=== PATIENT | male | born 1955 | race Caucasian/White ===

== ENCOUNTER → 2016-11-21 | Outpatient (CLI) | payer MEDICARE ==
--- NOTE | 2016-11-21 18:53 | CONS ---
DATE OF CONSULTATION: 11/21/2016 CONSULTATION/NEW PATIENT EVALUATION HISTORY OF PRESENT ILLNESS/SLEEP-WAKE EVALUATION: A 60-year-old gentleman who has been re-evaluated in the [facility] for obstructive sleep apnea/hypopnea syndrome. Patient had been diagnosed with obstructive sleep apnea in 2012. Since that time he is on treatment with CPAP. For the last about 1-1/2 months, the patient was not able to use his CPAP machine because of problem related to the mask and equipment. SLEEP SCHEDULE: Presently his sleep schedule is from around 9 or 10:00 p.m. until 6 or 7:00 a.m. FALLING ASLEEP: Usually no problem with falling asleep. DURING SLEEP: He usually sleeps on the back position. Even while using his machine he wakes up from sleep up to 4 times with up to 4 episodes of nocturia. DURING THE DAY/WAKE STATE: The patient has problems with memory and concentration. [place] Sleepiness Scale significantly increased to 12. PAST MEDICAL HISTORY: Positive for Lewy body disease, memory problems in the past. MEDICATIONS: Rivastigmine. SOCIAL HISTORY: Positive for smoking in the past; quit in about 1985. Alcohol consumption up to 3 beers per week. REVIEW OF SYSTEMS: Multiple awakenings from sleep, sleepiness during the day. No fevers. No double vision. No recent chest pain. No shortness of breath. No abdominal pain. No bleeding episodes. No blood in urine. No seizure episodes. FAMILY HISTORY: Heart problems, sleep apnea, diabetes, thyroid problems, albino disease, pituitary gland problems by his mother. PHYSICAL EXAMINATION: GENERAL: During physical exam, gentleman without distress. VITAL SIGNS: BP 115/69, HR 55, RR 16. Height 5 feet 6 inches. Weight 203.2. BMI 32.7. Neck 17-1/2 inches in circumference. Temp is 98.4. Oxygen saturation at room air 98%. HEENT: PERRLA, EOMI. Evaluation of oropharynx showed moderately low position of soft palate. Some restriction of nasal breathing. NECK: Supple. No JVD. Thyroid is not palpable. LUNGS: Clear to percussion and to auscultation. Good air exchange. No wheezing or rhonchi. HEART: S1, S2 regular. No murmurs, gallops or rubs. ABDOMEN: Obese. Soft and nontender. Bowel sounds are present. No organomegaly appreciated. EXTREMITIES: No clubbing or cyanosis. SERVICE COUNSELOR: Awake, alert, and oriented x3. Cranial nerves 2 to 7 intact. There is no fasciculation or atrophy noted. No focal deficits observed. IMPRESSION: 1. Obstructive sleep apnea-hypopnea syndrome. Patient continued to have multiple awakenings from sleep while on treatment with CPAP, low position of soft palate. Patient changed his weight about 30 pounds down since the previous CPAP titration. 2. Memory problems. 3. Lewy body disease. 4. Nocturia. 5. Sleepiness. [place] Sleepiness Scale increased to 12. 6. Obesity, body mass index of 32.7. PLAN: 1. Repeat CPAP titration for re-evaluation of effective CPAP pressure at the present time. 2. Continue losing weight. 3. Prescription for all necessary CPAP supplies. 4. No driving if feeling any sleepiness. Thank you very much for referring this patient for consultation. Sincerely, Michele Eldridge MD, PhD, FAASM. Diplomat of [place] [employer], Sleep Medicine Board by [place] [employer] [place] [employer] Premium Auditor of [facility] [place]
== END ==
LOC: SLEEP 14:05
PROVIDERS: ATTEND Internal Medicine
DX: G47.33 Obstructive sleep apnea (adult) (pediatric) (principal); R35.1 Nocturia; E66.9 Obesity, unspecified; G31.83 Neurocognitive disorder with Lewy bodies; F02.80 Dementia in other diseases classified elsewhere, unspecified severity, without behavioral disturbance, psychotic disturbance, mood disturbance, and anxiety; Z68.32 Body mass index [BMI] 32.0-32.9, adult; Z79.899 Other long term (current) drug therapy
CPT/HCPCS: 99211

== ENCOUNTER → 2017-05-08 | Outpatient (CLI) | payer MEDICARE ==
--- NOTE | 2017-05-08 11:35 | PN ---
PROGRESS NOTE DATE OF SERVICE: 05/08/2017 A 61-year-old gentleman who has been followed in the [facility] for treatment of obstructive sleep apnea-hypopnea syndrome. Several months ago patient had CPAP titration and I explained the results of titration to patient and family. Titration went very well, respiration was under very good control with CPAP. Patient received new CPAP unit and he continued to use his CPAP treatment every night without significant problems. He likes his mask. He likes his new machine. There is no snoring with the machine. [place] Sleepiness Scale today is 7. MEDICATIONS: [place], rivastigmine. I checked patient's CPAP unit and I also I reviewed results of reading from the machine. Usage, he is 100% of the time more than 4 hours. Average usage time 7 hours 34 minutes. CPAP pressure is 9 cm of water. Leak 95 percentile is 19 L/minute which is acceptable range, several days patient had more leak. He has nasal mask and sometimes probably during the night when he is moving mask goes slightly off. Apnea-hypopnea index reading from the machine for the last month is 2.5, which is normal respiration. PHYSICAL EXAM: Patient in no distress. BP 121/74, HR 50, RR 16, weight 205, temp 98.0, oxygen saturation at room air 98%. OROPHARYNX: Low position of soft palate. Small oropharyngeal airspace. ABDOMEN: Obese. Neck Supple, no JVD. Thyroid is not palpable. LUNGS Clear to percussion and to auscultation. Good air exchange. No wheezing or rhonchi. HEART S1, S2 regular. No murmurs, gallops, or rubs. EXTREMITIES No clubbing or cyanosis. RICE DRIER Awake, alert, and oriented X3. Cranial nerves 2 to 7 intact. There is no fasciculation or atrophy. noted. No focal deficits observed. IMPRESSION: 1. Obstructive sleep apnea-hypopnea syndrome on control with CPAP. Patient demonstrated 100% compliance with treatment benefitting from treatment. 2. Obesity. 3. Lewy-body changes. 4. Nocturia. PLAN: 1. Continue treatment with CPAP every night for the whole night. 2. Losing weight. 3. Sleep hygiene with time in bed for at least 7-1/2 hours. 4. Replace cushion in the mask. 5. Prescription for all necessary CPAP supplies including mask, tube, filters. Thank you very much for allowing me to participate in management of your patient. Sincerely, Michele Eldridge MD, PhD, FAASM Diplomat of [place] [employer] [place] [employer] [facility] [place] MMBARRIEL / BABS: [id number] /
== END | disposition home or self-care (01) ==
LOC: SLEEP 10:12
PROVIDERS: ATTEND Internal Medicine
DX: G47.33 Obstructive sleep apnea (adult) (pediatric) (principal); E66.9 Obesity, unspecified; R35.1 Nocturia; G31.83 Neurocognitive disorder with Lewy bodies

== ENCOUNTER 2017-09-07 18:10 | Emergency (ER) | payer MEDICARE ==
[2017-09-07 18:29] LABS: Glucose,Whole Blood 122 mg/dL (75-99)
[2017-09-07] MEDS ORDERED: SODIUM CHLORIDE 0.9% 500 ML IV STA (18:35)
[2017-09-07] MEDS ORDERED: ONDANSETRON 4 MG/2 ML VIAL IVP STA ×2 (18:37→19:49)
--- NOTE | 2017-09-07 18:51 | ED ---
General Adult HPI - General Chief complaint: Dizziness Stated complaint: KEVIN, DEMENTIA Time Seen by Provider: 09/07/17 18:19 Source: patient, family, RN notes reviewed Mode of arrival: wheelchair Limitations: no limitations - History of Present Illness Initial comments: 61-year-old male with history of anybody dementia presents for evaluation of dizziness, nausea vomiting, and dyspnea. Patient's states he was outside, moving a woodpile this afternoon, came in around 5:30. She states she sat down in a chair to rest, she then came in the room and he was laying on the floor complaining of dizziness. Patient denies fall or injury. Patient's affect is flat, he is able to contribute to the history. Denies headache. Denies vision changes. States he still having some dyspnea, and nausea vomiting. No abdominal pain. Denies focal weakness. Denies paresthesias. Denies fever or chills. Denies cough or URI symptoms. Denies chest pain. Symptoms began abruptly. Patient's does state that he normally wears a rivastigmine patch , for his dementia, and she noticed that he had 2 patches on. - Related Data Home Medications Medication Instructions Recorded Confirmed Cholecalciferol [Vitamin D3] 1,000 unit PO DAILY 09/07/17 09/07/17 Rivastigmine [Rivastigmine 1 patch TRANSDERM QAM 09/07/17 09/07/17 13.3MG/24Hr] [facility] Decongestant 1 tab PO ONCE PRN 09/07/17 09/07/17 Allergies Allergy/AdvReac Type Severity Reaction Status Date / Time No Known Allergies Allergy Verified 09/07/17 18:16 Review of Systems ROS Statement: Those systems with pertinent positive or pertinent negative responses have been documented in the HPI. ROS Other: All systems not noted in ROS Statement are negative. Past Medical History Past Medical History: Dementia History of Any Multi-Drug Resistant Organisms: None Reported Past Surgical History: No Surgical Hx Reported Past Psychological History: No Psychological Hx Reported Smoking Status: Never smoker Past Alcohol Use History: None Reported Past Drug Use History: None Reported General Exam Limitations: no limitations General appearance: alert, in distress Head exam: Present: atraumatic, normocephalic Eye exam: Present: normal appearance, PERRL, EOMI. Absent: nystagmus ENT exam: Present: normal exam, mucous membranes moist Neck exam: Present: normal inspection. Absent: tenderness, meningismus Respiratory exam: Present: normal lung sounds bilaterally, respiratory distress (Patient is tachypneic, lungs are clear.) Cardiovascular Exam: Present: regular rate, normal rhythm GI/Abdominal exam: Present: soft. Absent: distended, tenderness, guarding Extremities exam: Present: normal inspection, normal capillary refill. Absent: pedal edema, calf tenderness Neurological exam: Present: alert, other (Left upper extremity finger to nose ataxia). Absent: oriented X3 (Oriented to person, states that his baseline.), motor sensory deficit Psychiatric exam: Present: normal mood, flat affect Skin exam: Present: warm, intact, diaphoretic. Absent: cyanosis Course Vital Signs 09/07/17 09/07/17 09/07/17 18:11 18:30 18:45 Temperature 97.0 F L Pulse Rate 64 60 62 Respiratory 18 18 18 Rate Blood Pressure 153/78 162/77 162/74 O2 Sat by Pulse 100 100 100 Oximetry 09/07/17 09/07/17 09/07/17 19:00 19:15 19:45 Temperature Pulse Rate 78 62 62 Respiratory 18 18 18 Rate Blood Pressure 176/81 144/87 139/67 O2 Sat by Pulse 100 100 99 Oximetry 09/07/17 20:15 Temperature Pulse Rate 60 Respiratory 16 Rate Blood Pressure 143/72 O2 Sat by Pulse 100 Oximetry EKG Findings - EKG Comments: EKG Findings:: EKG: Normal sinus rhythm, minimal voltage criteria for LVH, ventricular rate 60, CA interval 168, QRS duration 112, QTC 442. No ST segment elevation. Medical Decision Making - Medical Decision Making 61-year-old male presenting dizziness, nausea and vomiting. Patient was experiencing some shortness of breath with this at the time of onset, this resolved without treatment. Head CT is obtained, this shows cerebral atrophy with no acute intracranial process. 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 It was noted on initial history and physical that the patient had 2 anticholinesterase inhibitor patches on which are high-dose 13.3 mg. He is somewhat ataxic on initial evaluation. This resolves with removal of his patches and medical treatment of vertigo. Chest x-ray negative for any airspace disease, there is a small nodule, patient is informed of this and will follow-up with primary care physician for repeat chest x-ray. CBC, electrolytes , troponin are within normal limits. EKG is normal sinus rhythm. Case is discussed with Dr. Gauthier, neurologist on-call, he does feel the symptoms are explained with medication overdose. Recommends not reinitiating his anticholinesterase inhibitor until the morning. On reevaluation, patient has nonfocal neurologic exam. Symptoms of vertigo resolved. He has a steady gait. He is eating a sandwich and drinking with no nausea vomiting. He is not feeling any further treatment of his symptoms. He is offered observation and declined stating he would like to be discharged. Patient's is agreeable with plan. They will return with any worsening or changing symptoms. - Lab Data Result diagrams: 09/07/17 18:55 09/07/17 19:00 Lab Results 09/07/17 09/07/17 09/07/17 Range/Units 18:21 18:55 19:00 WBC 10.3 (3.8-10.6) k/uL RBC 4.92 (4.30-5.90) m/uL Hgb 15.8 (13.0-17.5) gm/dL Hct 44.2 (39.0-53.0) % MCV 89.7 (80.0-100.0) fL MCH 32.0 (25.0-35.0) pg MCHC 35.7 (31.0-37.0) g/dL RDW 12.1 (11.5-15.5) % Plt Count 293 (150-450) k/uL Neutrophils % 68 % Lymphocytes % 23 % Monocytes % 6 % Eosinophils % 1 % Basophils % 0 % Neutrophils # 7.0 (1.3-7.7) k/uL Lymphocytes # 2.4 (1.0-4.8) k/uL Monocytes # 0.7 (0-1.0) k/uL Eosinophils # 0.1 (0-0.7) k/uL Basophils # 0.0 (0-0.2) k/uL PT (9.0-12.0) sec INR (<1.2) APTT (22.0-30.0) sec Sodium (137-145) mmol/L Potassium (3.5-5.1) mmol/L Chloride (98-107) mmol/L Carbon Dioxide (22-30) mmol/L Anion Gap mmol/L BUN (9-20) mg/dL Creatinine (0.66-1.25) mg/dL Est GFR (CKD-EPI)AfAm (>60 ml/min/1.73 sqM) Est GFR (CKD-EPI)NonAf (>60 ml/min/1.73 sqM) Glucose (74-99) mg/dL POC Glucose (mg/dL) 122 H (75-99) mg/dL POC Glu Pipe Supervisor ID Janay Ulloa Calcium (8.4-10.2) mg/dL Magnesium (1.6-2.3) mg/dL Total Bilirubin (0.2-1.3) mg/dL AST (17-59) U/L ALT (21-72) U/L Alkaline Phosphatase (38-126) U/L Total Creatine Kinase 74 (55-170) U/L CK-MB (CK-2) 0.6 (0.0-2.4) ng/mL CK-MB (CK-2) Rel Index 0.8 Troponin I <0.012 (0.000-0.034) ng/mL NT-Pro-B Natriuret Pep pg/mL Total Protein (6.3-8.2) g/dL Albumin (3.5-5.0) g/dL 09/07/17 09/07/17 09/07/17 Range/Units 19:00 19:00 19:50 WBC (3.8-10.6) k/uL RBC (4.30-5.90) m/uL Hgb (13.0-17.5) gm/dL Hct (39.0-53.0) % MCV (80.0-100.0) fL MCH (25.0-35.0) pg MCHC (31.0-37.0) g/dL RDW (11.5-15.5) % Plt Count (150-450) k/uL Neutrophils % % Lymphocytes % % Monocytes % % Eosinophils % % Basophils % % Neutrophils # (1.3-7.7) k/uL Lymphocytes # (1.0-4.8) k/uL Monocytes # (0-1.0) k/uL Eosinophils # (0-0.7) k/uL Basophils # (0-0.2) k/uL PT 10.9 (9.0-12.0) sec INR 1.1 (<1.2) APTT 22.8 (22.0-30.0) sec Sodium 143 (137-145) mmol/L Potassium 3.6 (3.5-5.1) mmol/L Chloride 104 (98-107) mmol/L Carbon Dioxide 19 L (22-30) mmol/L Anion Gap 20 mmol/L BUN 18 (9-20) mg/dL Creatinine 0.94 (0.66-1.25) mg/dL Est GFR (CKD-EPI)AfAm >90 (>60 ml/min/1.73 sqM) Est GFR (CKD-EPI)NonAf 88 (>60 ml/min/1.73 sqM) Glucose 151 H (74-99) mg/dL POC Glucose (mg/dL) (75-99) mg/dL POC Glu Pipe Supervisor ID Calcium 10.0 (8.4-10.2) mg/dL Magnesium 1.9 (1.6-2.3) mg/dL Total Bilirubin 0.8 (0.2-1.3) mg/dL AST 20 (17-59) U/L ALT 27 (21-72) U/L Alkaline Phosphatase 95 (38-126) U/L Total Creatine Kinase (55-170) U/L CK-MB (CK-2) (0.0-2.4) ng/mL CK-MB (CK-2) Rel Index Troponin I (0.000-0.034) ng/mL NT-Pro-B Natriuret Pep 38 pg/mL Total Protein 7.3 (6.3-8.2) g/dL Albumin 4.6 (3.5-5.0) g/dL Disposition Clinical Impression: Vertigo, Nausea & vomiting, Accidental medication overdose Disposition: HOME SELF-CARE Condition: Good Instructions: Vertigo (ED), Acute Nausea and Vomiting (ED) Referrals: Des Ortiz MD [Primary Care Provider] - 1-2 days Time of Disposition: 21:00
[2017-09-07 18:54] LABS: Basophils % (A) 0 %; Eosinophils # (A) 0.1 k/uL (0-0.7); Eosinophils % (A) 1 %; HCT 44.2 % (39.0-53.0); HGB 15.8 gm/dL (13.0-17.5); Lymphocytes # (A) 2.4 k/uL (1.0-4.8); Lymphocytes % (A) 23 %; MCHC 35.7 g/dL (31.0-37.0); MCV 89.7 fL (80.0-100.0); Mean Platelet Volume 8.2; Monocytes # (A) 0.7 k/uL (0-1.0); Monocytes % (A) 6 %; Neutrophils % (A) 68 %; Platelet Count 293 k/uL (150-450); RBC 4.92 m/uL (4.30-5.90); RDW 12.1 % (11.5-15.5); WBC 10.3 k/uL (3.8-10.6)
[2017-09-07 19:06] LABS: ALT 27 U/L (21-72); AST 20 U/L (17-59); Albumin 4.6 g/dL (3.5-5.0); Alkaline Phosphatase 95 U/L (38-126); Anion Gap 20 mmol/L; Blood Urea Nitrogen 18 mg/dL (9-20); Carbon Dioxide 19 mmol/L (22-30); Chloride 104 mmol/L (98-107); Glucose 151 mg/dL (74-99); Magnesium 1.9 mg/dL (1.6-2.3); Potassium 3.6 mmol/L (3.5-5.1); Sodium 143 mmol/L (137-145); Total Bilirubin 0.8 mg/dL (0.2-1.3); Total Protein 7.3 g/dL (6.3-8.2)
--- NOTE | 2017-09-07 19:06 | CT ---
EXAMINATION TYPE: CT brain wo con DATE OF EXAM: 09/07/2017 COMPARISON: NONE HISTORY: 61-year-old male vomiting, ataxia, Dizziness. TECHNIQUE: Examination was done in axial plane without intravenous contrast. Coronal and sagittal r econstructions performed. CT DLP: 833.9 mGycm Automated exposure control for dose reduction was used. FINDINGS: There is no evidence of acute intracranial hemorrhage, acute ischemic changes, mass, mass-effect, or extra-axial fluid collection. There is no effacement of cerebral sulci or basal subarachnoid cister ns. There is moderate generalized supratentorial volume loss especially with central cerebral atrophy cau sing secondary prominence to the ventricular system. Corona ratio is calculated at 0.37. There is no midline shift. [place]-white matter distinction is preserved. Paranasal sinuses and mastoid air cells well pneumatized. Orbits and globes are intact. IMPRESSION: No acute intracranial abnormality seen. Moderate atrophy especially central cerebral atrophy.
[2017-09-07 19:07] LABS: Creatine Kinase 74 U/L (55-170)
[2017-09-07 19:21] LABS: Creatine Kinase MB 0.6 ng/mL (0.0-2.4); Troponin I <0.012 ng/mL (0.000-0.034)
[2017-09-07] MEDS ORDERED: MECLIZINE 12.5 MG TAB PO STA (19:49)
[2017-09-07] MEDS ORDERED: LORazepam 2 MG/ML INJ IV STA (19:49)
[2017-09-07] MEDS ORDERED: SODIUM CHLORIDE 0.9% 1,000 ML IV SCH (20:00)
--- NOTE | 2017-09-07 20:04 | XR ---
EXAMINATION TYPE: XR chest 2V DATE OF EXAM: 09/07/2017 COMPARISON: None HISTORY: 61-year-old male shortness of breath, difficulty breathing TECHNIQUE: AP and lateral views FINDINGS: The heart is normal size. Mild elongation/ectasia of the thoracic aorta. Strandy areas of atelectasis throughout the lungs. Left perihilar nodular density suspected prominent vessel on end rather than n odule. No consolidation or pleural effusion. IMPRESSION: 1. Strandy atelectasis throughout the lungs. Otherwise, no acute cardiopulmonary process. 2. Left perihilar nodular density suspected to represent a prominent vessel on end rather than a pulm onary nodule. Recommend follow-up radiograph in 4-6 weeks to reassess.
[2017-09-07 20:08] LABS: INR 1.1 (<1.2); Partial Thromboplastin Time 22.8 sec (22.0-30.0); Prothrombin Time 10.9 sec (9.0-12.0)
[2017-09-07 21:32] VITALS: BP 134/79; PULSE 58; RESP 18; TEMP 98.2
== END 2017-09-07 21:33 | disposition home or self-care (01) ==
LOC: EC 18:10
DX: T44.1X1A Poisoning by other parasympathomimetics [cholinergics], accidental (unintentional), initial encounter (principal); R42 Dizziness and giddiness; R06.02 Shortness of breath; R11.2 Nausea with vomiting, unspecified; G31.9 Degenerative disease of nervous system, unspecified; R27.0 Ataxia, unspecified; F03.90 Unspecified dementia, unspecified severity, without behavioral disturbance, psychotic disturbance, mood disturbance, and anxiety; Z79.899 Other long term (current) drug therapy
CPT/HCPCS: 36415; 93005; 83880; 80053; 82550; 82553; 83735; 84484; 85025; 85610; 85730; 71046; 70450; 99285; 96374; 96375; 96376; 96361 ×2; J2060; J2405

== ENCOUNTER 2018-02-26 04:37 | Emergency (ER) | payer MEDICARE ==
[2018-02-26] MEDS ORDERED: SODIUM CHLORIDE 0.9% 500 ML IV STA (05:04)
[2018-02-26] MEDS ORDERED: MECLIZINE 12.5 MG TAB PO STA (05:04)
--- NOTE | 2018-02-26 05:10 | ED ---
Dizziness HPI - General Chief Complaint: Dizziness Stated Complaint: dizziness Time Seen by Provider: 02/26/18 04:50 Source: patient Mode of arrival: wheelchair Limitations: no limitations - History of Present Illness Initial Comments: This is a 62-year-old male with a history of Shannon E body dementia who presents emergency department for worsening confusion tonight and dizziness. The patient is a known history of dementia and gets significant confusion especially at nighttime. He is better during the day. He does not sleep very well and was prescribed melatonin initially however was recently prescribed trazodone however the has not given him a dose. He is on Ledbetter take mean patches which the has been monitoring. Tonight the patient was having significant confusion and restlessness. She states that this night was worse than most other nights. She states that he then later started complaining of some dizziness. The patient has a hard time articulating what he is feeling. His speech is very broken which is chronic for him per the . He states that he does feel like the room is spinning at times. He denies any focal weakness or numbness. He states that he just feels very cold. Denies any chest pain or shortness of breath. No other acute complaints. - Related Data Home Medications Medication Instructions Recorded Confirmed Cholecalciferol [Vitamin D3] 1,000 unit PO DAILY 09/07/17 09/07/17 Rivastigmine [Rivastigmine 1 patch TRANSDERM QAM 09/07/17 09/07/17 13.3MG/24Hr] [facility] Decong[facility]ant 1 tab PO ONCE PRN 09/07/17 09/07/17 Previous Rx's Medication Instructions Recorded Meclizine [Antivert] 25 mg PO BID PRN #20 tab 02/26/18 Allergies Allergy/AdvReac Type Severity Reaction Status Date / Time No Known Allergies Allergy Verified 02/26/18 04:49 Review of Systems ROS Statement: Those systems with pertinent positive or pertinent negative responses have been documented in the HPI. ROS Other: All systems not noted in ROS Statement are negative. Past Medical History Past Medical History: Dementia History of Any Multi-Drug Resistant Organisms: None Reported Past Surgical History: No Surgical Hx Reported Past Psychological History: No Psychological Hx Reported Smoking Status: Former smoker Past Alcohol Use History: None Reported Past Drug Use History: None Reported General Exam - General Exam Comments Initial Comments: Constitutional: Awake alert Appears comfortable Head: Normocephalic atraumatic Eyes: no conjunctival injection No scleral icterus EOMI, no nystagmus seen on examination Neck: No JVD Supple Heart: Regular rate rhythm normal S1-S2 no murmurs Lungs: Clear to auscultation bilaterally No wheezing No rales Abdomen: Soft nondistended nontender Extremities: Non edematous DP pulses intact Radial pulses intact Neuro: She is awake and alert and oriented 2-3, 5 out of 5 strength in upper and lower extremities bilaterally, sensation intact to light touch in bilateral lower extremities and upper extremities, normal finger to nose and heel to travis testing No focal neurologic deficits Psych: Appropriate mood and affect Limitations: no limitations Course Vital Signs 02/26/18 02/26/18 02/26/18 04:44 05:54 06:10 Temperature 97.9 F Pulse Rate 53 L 54 L Respiratory 18 19 17 Rate Blood Pressure 141/76 125/76 O2 Sat by Pulse 97 97 Oximetry 02/26/18 07:27 Temperature 98.2 F Pulse Rate 66 Respiratory 18 Rate Blood Pressure 138/77 O2 Sat by Pulse 66 L Oximetry EKG Findings - EKG Comments: EKG Findings:: EKG showing sinus bradycardia with a rate of 51. There is no abnormal ST segment changes or T-wave inversions. QTC is 412. Other intervals normal. No ectopy. Medical Decision Making - Medical Decision Making This is a 63-year-old male who presents emergency department for an episode of dizziness and confusion this evening. CT of the head was negative. X-ray of the chest was negative. Blood work was reviewed and unremarkable. UA unremarkable. Patient was improved after Antivert. He is going to go home with Antivert to use twice a day when necessary. Cautioned used with his other medications I instructed the to notify his neurologist of the visit. She needs to start giving him in the 25 mg trazodone at nighttime. He can return emergency Department if he has any worsening or changing symptoms. All questions were answered. - Lab Data Result diagrams: 02/26/18 05:10 02/26/18 05:10 Lab Results 02/26/18 02/26/18 02/26/18 Range/Units 05:10 05:10 05:10 WBC 6.6 (3.8-10.6) k/uL RBC 4.58 (4.30-5.90) m/uL Hgb 15.3 (13.0-17.5) gm/dL Hct 42.5 (39.0-53.0) % MCV 92.8 (80.0-100.0) fL MCH 33.3 (25.0-35.0) pg MCHC 35.9 (31.0-37.0) g/dL RDW 12.0 (11.5-15.5) % Plt Count 255 (150-450) k/uL Neutrophils % 76 % Lymphocytes % 13 % Monocytes % 8 % Eosinophils % 2 % Basophils % 0 % Neutrophils # 5.0 (1.3-7.7) k/uL Lymphocytes # 0.9 L (1.0-4.8) k/uL Monocytes # 0.5 (0-1.0) k/uL Eosinophils # 0.1 (0-0.7) k/uL Basophils # 0.0 (0-0.2) k/uL Sodium 137 (137-145) mmol/L Potassium 4.1 (3.5-5.1) mmol/L Chloride 106 (98-107) mmol/L Carbon Dioxide 24 (22-30) mmol/L Anion Gap 7 mmol/L BUN 15 (9-20) mg/dL Creatinine 0.72 (0.66-1.25) mg/dL Est GFR (CKD-EPI)AfAm >90 (>60 ml/min/1.73 sqM) Est GFR (CKD-EPI)NonAf >90 (>60 ml/min/1.73 sqM) Glucose 120 H (74-99) mg/dL Calcium 9.9 (8.4-10.2) mg/dL Magnesium 2.1 (1.6-2.3) mg/dL Total Bilirubin 0.8 (0.2-1.3) mg/dL AST 18 (17-59) U/L ALT 32 (21-72) U/L Alkaline Phosphatase 65 (38-126) U/L Troponin I <0.012 (0.000-0.034) ng/mL Total Protein 6.7 (6.3-8.2) g/dL Albumin 4.1 (3.5-5.0) g/dL Urine Color Urine Appearance (Clear) Urine pH (5.0-8.0) Ur Specific [place] (1.001-1.035) Urine Protein (Negative) Urine Glucose (UA) (Negative) Urine Ketones (Negative) Urine Blood (Negative) Urine Nitrite (Negative) Urine Bilirubin (Negative) Urine Urobilinogen (<2.0) mg/dL Ur Leukocyte Esterase (Negative) Urine WBC (0-5) /hpf Amorphous Sediment (None) /hpf Urine Mucus (None) /hpf 02/26/18 Range/Units 06:35 WBC (3.8-10.6) k/uL RBC (4.30-5.90) m/uL Hgb (13.0-17.5) gm/dL Hct (39.0-53.0) % MCV (80.0-100.0) fL MCH (25.0-35.0) pg MCHC (31.0-37.0) g/dL RDW (11.5-15.5) % Plt Count (150-450) k/uL Neutrophils % % Lymphocytes % % Monocytes % % Eosinophils % % Basophils % % Neutrophils # (1.3-7.7) k/uL Lymphocytes # (1.0-4.8) k/uL Monocytes # (0-1.0) k/uL Eosinophils # (0-0.7) k/uL Basophils # (0-0.2) k/uL Sodium (137-145) mmol/L Potassium (3.5-5.1) mmol/L Chloride (98-107) mmol/L Carbon Dioxide (22-30) mmol/L Anion Gap mmol/L BUN (9-20) mg/dL Creatinine (0.66-1.25) mg/dL Est GFR (CKD-EPI)AfAm (>60 ml/min/1.73 sqM) Est GFR (CKD-EPI)NonAf (>60 ml/min/1.73 sqM) Glucose (74-99) mg/dL Calcium (8.4-10.2) mg/dL Magnesium (1.6-2.3) mg/dL Total Bilirubin (0.2-1.3) mg/dL AST (17-59) U/L ALT (21-72) U/L Alkaline Phosphatase (38-126) U/L Troponin I (0.000-0.034) ng/mL Total Protein (6.3-8.2) g/dL Albumin (3.5-5.0) g/dL Urine Color Yellow Urine Appearance Cloudy (Clear) Urine pH 8.5 H (5.0-8.0) Ur Specific [place] 1.014 (1.001-1.035) Urine Protein Trace H (Negative) Urine Glucose (UA) Negative (Negative) Urine Ketones 1+ H (Negative) Urine Blood Negative (Negative) Urine Nitrite Negative (Negative) Urine Bilirubin Negative (Negative) Urine Urobilinogen <2.0 (<2.0) mg/dL Ur Leukocyte Esterase Negative (Negative) Urine WBC 8 H (0-5) /hpf Amorphous Sediment Rare H (None) /hpf Urine Mucus Rare H (None) /hpf Disposition Clinical Impression: Dizziness, Lewy body dementia Disposition: HOME SELF-CARE Condition: Stable Instructions: Dizziness (ED) Prescriptions: Meclizine [Antivert] 25 mg PO BID PRN #20 tab PRN Reason: dizziness Is patient prescribed a controlled substance at d/c from ED?: No Referrals: Des Ortiz MD [Primary Care Provider] - 1-2 days
[2018-02-26 05:30] LABS: Basophils % (A) 0 %; Eosinophils # (A) 0.1 k/uL (0-0.7); Eosinophils % (A) 2 %; HCT 42.5 % (39.0-53.0); HGB 15.3 gm/dL (13.0-17.5); Lymphocytes # (A) 0.9 k/uL (1.0-4.8); Lymphocytes % (A) 13 %; MCH 33.3 pg (25.0-35.0); MCHC 35.9 g/dL (31.0-37.0); MCV 92.8 fL (80.0-100.0); Mean Platelet Volume 7.3; Monocytes # (A) 0.5 k/uL (0-1.0); Monocytes % (A) 8 %; Neutrophils % (A) 76 %; Platelet Count 255 k/uL (150-450); RBC 4.58 m/uL (4.30-5.90); WBC 6.6 k/uL (3.8-10.6)
[2018-02-26 05:52] LABS: ALT 32 U/L (21-72); AST 18 U/L (17-59); Albumin 4.1 g/dL (3.5-5.0); Alkaline Phosphatase 65 U/L (38-126); Anion Gap 7 mmol/L; Blood Urea Nitrogen 15 mg/dL (9-20); Calcium 9.9 mg/dL (8.4-10.2); Carbon Dioxide 24 mmol/L (22-30); Chloride 106 mmol/L (98-107); Glucose 120 mg/dL (74-99); Magnesium 2.1 mg/dL (1.6-2.3); Potassium 4.1 mmol/L (3.5-5.1); Sodium 137 mmol/L (137-145); Total Bilirubin 0.8 mg/dL (0.2-1.3); Total Protein 6.7 g/dL (6.3-8.2)
--- NOTE | 2018-02-26 06:16 | CT ---
EXAM: CT Head Without Intravenous Contrast CLINICAL HISTORY: Dizziness TECHNIQUE: Axial computed tomography images of the head/brain without intravenous contrast. DLP is 1135 mGy-cm. This CT exam was performed using one or more of the following dose reduction techniques: automated exposure control, adjustment of the mA and/or kV according to patient size, and/or use of iterative reconstruction technique. COMPARISON: 09/07/2017 FINDINGS: Brain: Cerebral atrophy with resulting ex vacuo dilatation of the lateral ventricles is similar to previous examination. No hemorrhage. No significant white matter disease. Ventricles: See above. Bones/joints: Unremarkable. No acute fracture. Soft tissues: Unremarkable. Sinuses: Unremarkable as visualized. No acute sinusitis. Mastoid air cells: Unremarkable as visualized. No mastoid effusion. IMPRESSION: No acute intracranial process or significant alteration from previous exam.
--- NOTE | 2018-02-26 06:19 | XR ---
EXAM: XR Chest, 2 Views CLINICAL HISTORY: Confusion TECHNIQUE: Frontal and lateral views of the chest. COMPARISON: 09/07/2017 FINDINGS: Lungs: Stable hypoinflation of the lungs. No focal airspace disease. Mild pulmonary vascular crowding suggested. Pleural space: No pleural effusion. No pneumothorax. Heart: Unremarkable. No cardiomegaly. Mediastinum: Unremarkable. Bones/joints: Unremarkable. IMPRESSION: Diminished lung expansion without focal airspace disease or significant interval change from previous exam.
[2018-02-26 07:17] LABS: Amorphous Sediment,Urine Rare /hpf; Appearance,Urine Cloudy (Clear); Bilirubin,Urine Negative (Negative); Blood,Urine Negative (Negative); Color,Urine Yellow; Glucose,Urine (UA) Negative (Negative); Ketones,Urine 1+ (Negative); Leukocyte Esterase,Urine Negative (Negative); Mucus,Urine Rare /hpf; Nitrite,Urine Negative (Negative); PH, Urine 8.5 (5.0-8.0); Protein,Urine Trace (Negative); Specific Gravity,Urine 1.014 (1.001-1.035); Urobilinogen,Urine <2.0 mg/dL (<2.0); WBC,Urine 8 /hpf (0-5)
[2018-02-26 07:28] VITALS: BP 138/77; PULSE 66; RESP 18; TEMP 98.2
== END 2018-02-26 07:28 | disposition home or self-care (01) ==
LOC: EC 04:37
DX: G31.83 Neurocognitive disorder with Lewy bodies (principal); R42 Dizziness and giddiness; Z87.891 Personal history of nicotine dependence; Z79.899 Other long term (current) drug therapy
CPT/HCPCS: 36415; 70450; 71046; 80053; 81001; 83735; 84484; 85025; 93005; 96360; 99284

== ENCOUNTER 2018-04-20 21:03 | Emergency (ER) | payer MEDICARE ==
[2018-04-20] MEDS ORDERED: SODIUM CHLORIDE 0.9% 500 ML 500 ML IV STA (21:58)
[2018-04-20] MEDS ORDERED: ONDANSETRON 4 MG/2 ML VIAL IVP STA (21:58)
[2018-04-20] MEDS ORDERED: SODIUM CHLORIDE 0.9% 1,000 ML IV STA ×2 (21:58)
[2018-04-20] MEDS ORDERED: LORazepam 2 MG/ML INJ IV STA (22:00)
--- NOTE | 2018-04-20 22:02 | ED ---
Nausea/Vomiting/Diarrhea HPI - General Chief complaint: Weakness Stated complaint: Dizzy, light headed, vomiting Time Seen by Provider: 04/20/18 21:47 Source: patient, RN notes reviewed, old records reviewed Mode of arrival: wheelchair Limitations: physical limitation - History of Present Illness Initial comments: This is a 62-year-old male the ER for evaluation presents today for evaluation regarding weakness dizziness lightheadedness. Patient also complaining of does generalized weakness and dizziness nausea no recent fevers no chest pain no headache. No neurological complaints MD complaint: nausea -: hour(s) Associated Abdominal Pain: Yes Radiation: none Severity: mild Quality: constant Consistency: constant Improves with: none Worsens with: none Associated Symptoms: fever/chills, weakness - Related Data Home Medications Medication Instructions Recorded Confirmed Rivastigmine [Rivastigmine 1 patch TRANSDERM DAILY 09/07/17 04/20/18 13.3MG/24Hr] Memantine [Namenda] 10 mg PO BID 04/20/18 04/20/18 traZODone HCL 50 mg PO HS 04/20/18 04/20/18 Previous Rx's Medication Instructions Recorded Meclizine [Antivert] 25 mg PO BID PRN #20 tab 02/26/18 Allergies Allergy/AdvReac Type Severity Reaction Status Date / Time No Known Allergies Allergy Verified 04/20/18 21:40 Review of Systems ROS Statement: Those systems with pertinent positive or pertinent negative responses have been documented in the HPI. ROS Other: All systems not noted in ROS Statement are negative. Past Medical History Past Medical History: Dementia History of Any Multi-Drug Resistant Organisms: None Reported Past Surgical History: No Surgical Hx Reported Past Psychological History: No Psychological Hx Reported Smoking Status: Former smoker Past Alcohol Use History: None Reported Past Drug Use History: None Reported General Exam Limitations: physical limitation General appearance: alert, in no apparent distress, anxious Head exam: Present: atraumatic, normocephalic, normal inspection Eye exam: Present: normal appearance, PERRL, EOMI. Absent: scleral icterus, conjunctival injection, periorbital swelling ENT exam: Present: normal exam, mucous membranes moist Neck exam: Present: normal inspection. Absent: tenderness, meningismus, lymphadenopathy Respiratory exam: Present: normal lung sounds bilaterally. Absent: respiratory distress, wheezes, rales, rhonchi, stridor Cardiovascular Exam: Present: regular rate, normal rhythm, normal heart sounds. Absent: systolic murmur, diastolic murmur, rubs, gallop, clicks GI/Abdominal exam: Present: soft, normal bowel sounds. Absent: distended, tenderness, guarding, rebound, rigid Extremities exam: Present: normal inspection, full ROM, normal capillary refill. Absent: tenderness, pedal edema, joint swelling, calf tenderness Back exam: Present: normal inspection Neurological exam: Present: alert, oriented X3, CN II-XII intact Psychiatric exam: Present: normal affect, normal mood Skin exam: Present: warm, dry, intact, normal color. Absent: rash Course Vital Signs 04/20/18 04/21/18 21:17 00:27 Pulse Rate 61 72 Respiratory 19 18 Rate Blood Pressure 172/83 116/70 O2 Sat by Pulse 100 100 Oximetry Medical Decision Making - Medical Decision Making 60 male the ER for weakness dizziness and nausea, any symptoms of vertigo, patient is without significant complaint now. Feeling better with medication here in the emergency room and can be discharged home - Lab Data Result diagrams: 04/20/18 22:13 04/20/18 22:13 Lab Results 04/20/18 04/20/18 04/20/18 Range/Units 22:13 22:13 22:13 WBC 11.4 H (3.8-10.6) k/uL RBC 4.29 L (4.30-5.90) m/uL Hgb 14.0 (13.0-17.5) gm/dL Hct 40.4 (39.0-53.0) % MCV 94.2 (80.0-100.0) fL MCH 32.7 (25.0-35.0) pg MCHC 34.7 (31.0-37.0) g/dL RDW 12.1 (11.5-15.5) % Plt Count 231 (150-450) k/uL Neutrophils % 88 % Lymphocytes % 7 % Monocytes % 4 % Eosinophils % 0 % Basophils % 0 % Neutrophils # 10.0 H (1.3-7.7) k/uL Lymphocytes # 0.8 L (1.0-4.8) k/uL Monocytes # 0.5 (0-1.0) k/uL Eosinophils # 0.1 (0-0.7) k/uL Basophils # 0.0 (0-0.2) k/uL PT (9.0-12.0) sec INR (<1.2) APTT (22.0-30.0) sec Sodium 137 (137-145) mmol/L Potassium 3.5 (3.5-5.1) mmol/L Chloride 106 (98-107) mmol/L Carbon Dioxide 24 (22-30) mmol/L Anion Gap 7 mmol/L BUN 18 (9-20) mg/dL Creatinine 0.80 (0.66-1.25) mg/dL Est GFR (CKD-EPI)AfAm >90 (>60 ml/min/1.73 sqM) Est GFR (CKD-EPI)NonAf >90 (>60 ml/min/1.73 sqM) Glucose 131 H (74-99) mg/dL Lactic Ac Sepsis Rflx Plasma Lactic Acid Aidan (0.7-2.0) mmol/L Calcium 9.2 (8.4-10.2) mg/dL Phosphorus 1.4 L (2.5-4.5) mg/dL Magnesium 2.0 (1.6-2.3) mg/dL Total Bilirubin 0.6 (0.2-1.3) mg/dL AST 16 L (17-59) U/L ALT 27 (21-72) U/L Alkaline Phosphatase 60 (38-126) U/L Total Creatine Kinase 46 L (55-170) U/L CK-MB (CK-2) 0.3 (0.0-2.4) ng/mL CK-MB (CK-2) Rel Index 0.7 Troponin I <0.012 (0.000-0.034) ng/mL Total Protein 6.2 L (6.3-8.2) g/dL Albumin 3.8 (3.5-5.0) g/dL Lipase 75 (23-300) U/L Urine Color Urine Appearance (Clear) Urine pH (5.0-8.0) Ur Specific [place] (1.001-1.035) Urine Protein (Negative) Urine Glucose (UA) (Negative) Urine Ketones (Negative) Urine Blood (Negative) Urine Nitrite (Negative) Urine Bilirubin (Negative) Urine Urobilinogen (<2.0) mg/dL Ur Leukocyte Esterase (Negative) 04/20/18 04/20/18 04/20/18 Range/Units 22:13 22:13 23:04 WBC (3.8-10.6) k/uL RBC (4.30-5.90) m/uL Hgb (13.0-17.5) gm/dL Hct (39.0-53.0) % MCV (80.0-100.0) fL MCH (25.0-35.0) pg MCHC (31.0-37.0) g/dL RDW (11.5-15.5) % Plt Count (150-450) k/uL Neutrophils % % Lymphocytes % % Monocytes % % Eosinophils % % Basophils % % Neutrophils # (1.3-7.7) k/uL Lymphocytes # (1.0-4.8) k/uL Monocytes # (0-1.0) k/uL Eosinophils # (0-0.7) k/uL Basophils # (0-0.2) k/uL PT 11.0 (9.0-12.0) sec INR 1.1 (<1.2) APTT 22.4 (22.0-30.0) sec Sodium (137-145) mmol/L Potassium (3.5-5.1) mmol/L Chloride (98-107) mmol/L Carbon Dioxide (22-30) mmol/L Anion Gap mmol/L BUN (9-20) mg/dL Creatinine (0.66-1.25) mg/dL Est GFR (CKD-EPI)AfAm (>60 ml/min/1.73 sqM) Est GFR (CKD-EPI)NonAf (>60 ml/min/1.73 sqM) Glucose (74-99) mg/dL Lactic Ac Sepsis Rflx Y Plasma Lactic Acid Aidan 2.4 H* (0.7-2.0) mmol/L Calcium (8.4-10.2) mg/dL Phosphorus (2.5-4.5) mg/dL Magnesium (1.6-2.3) mg/dL Total Bilirubin (0.2-1.3) mg/dL AST (17-59) U/L ALT (21-72) U/L Alkaline Phosphatase (38-126) U/L Total Creatine Kinase (55-170) U/L CK-MB (CK-2) (0.0-2.4) ng/mL CK-MB (CK-2) Rel Index Troponin I (0.000-0.034) ng/mL Total Protein (6.3-8.2) g/dL Albumin (3.5-5.0) g/dL Lipase (23-300) U/L Urine Color Urine Appearance (Clear) Urine pH (5.0-8.0) Ur Specific [place] (1.001-1.035) Urine Protein (Negative) Urine Glucose (UA) (Negative) Urine Ketones (Negative) Urine Blood (Negative) Urine Nitrite (Negative) Urine Bilirubin (Negative) Urine Urobilinogen (<2.0) mg/dL Ur Leukocyte Esterase (Negative) 04/20/18 Range/Units 23:42 WBC (3.8-10.6) k/uL RBC (4.30-5.90) m/uL Hgb (13.0-17.5) gm/dL Hct (39.0-53.0) % MCV (80.0-100.0) fL MCH (25.0-35.0) pg MCHC (31.0-37.0) g/dL RDW (11.5-15.5) % Plt Count (150-450) k/uL Neutrophils % % Lymphocytes % % Monocytes % % Eosinophils % % Basophils % % Neutrophils # (1.3-7.7) k/uL Lymphocytes # (1.0-4.8) k/uL Monocytes # (0-1.0) k/uL Eosinophils # (0-0.7) k/uL Basophils # (0-0.2) k/uL PT (9.0-12.0) sec INR (<1.2) APTT (22.0-30.0) sec Sodium (137-145) mmol/L Potassium (3.5-5.1) mmol/L Chloride (98-107) mmol/L Carbon Dioxide (22-30) mmol/L Anion Gap mmol/L BUN (9-20) mg/dL Creatinine (0.66-1.25) mg/dL Est GFR (CKD-EPI)AfAm (>60 ml/min/1.73 sqM) Est GFR (CKD-EPI)NonAf (>60 ml/min/1.73 sqM) Glucose (74-99) mg/dL Lactic Ac Sepsis Rflx Plasma Lactic Acid Aidan (0.7-2.0) mmol/L Calcium (8.4-10.2) mg/dL Phosphorus (2.5-4.5) mg/dL Magnesium (1.6-2.3) mg/dL Total Bilirubin (0.2-1.3) mg/dL AST (17-59) U/L ALT (21-72) U/L Alkaline Phosphatase (38-126) U/L Total Creatine Kinase (55-170) U/L CK-MB (CK-2) (0.0-2.4) ng/mL CK-MB (CK-2) Rel Index Troponin I (0.000-0.034) ng/mL Total Protein (6.3-8.2) g/dL Albumin (3.5-5.0) g/dL Lipase (23-300) U/L Urine Color Yellow Urine Appearance Clear (Clear) Urine pH 8.5 H (5.0-8.0) Ur Specific [place] 1.013 (1.001-1.035) Urine Protein Trace H (Negative) Urine Glucose (UA) Negative (Negative) Urine Ketones 2+ H (Negative) Urine Blood Negative (Negative) Urine Nitrite Negative (Negative) Urine Bilirubin Negative (Negative) Urine Urobilinogen <2.0 (<2.0) mg/dL Ur Leukocyte Esterase Negative (Negative) - EKG Data -: EKG Interpreted by Me (EKG shows sinus bradycardia 59, DE 166, QRS 90, QTc 420) - Radiology Data Radiology results: report reviewed (CT brain is negative for acute disease), image reviewed Disposition Clinical Impression: Dehydration, Nausea & vomiting Disposition: HOME SELF-CARE Condition: Good Instructions: Acute Nausea and Vomiting (ED) Is patient prescribed a controlled substance at d/c from ED?: No Referrals: Des Ortiz MD [Primary Care Provider] - 1-2 days
[2018-04-20 23:06] LABS: Basophils % (A) 0 %; Eosinophils # (A) 0.1 k/uL (0-0.7); Eosinophils % (A) 0 %; HCT 40.4 % (39.0-53.0); Lymphocytes # (A) 0.8 k/uL (1.0-4.8); Lymphocytes % (A) 7 %; MCH 32.7 pg (25.0-35.0); MCHC 34.7 g/dL (31.0-37.0); MCV 94.2 fL (80.0-100.0); Mean Platelet Volume 7.1; Monocytes # (A) 0.5 k/uL (0-1.0); Monocytes % (A) 4 %; Neutrophils % (A) 88 %; Platelet Count 231 k/uL (150-450); RBC 4.29 m/uL (4.30-5.90); RDW 12.1 % (11.5-15.5); WBC 11.4 k/uL (3.8-10.6)
--- NOTE | 2018-04-20 23:06 | CT ---
EXAMINATION TYPE: CT brain wo con DATE OF EXAM: 04/20/2018 COMPARISON: 02/26/2018 HISTORY: Weakness, confusion CT DLP: 1307.4 mGycm Automated exposure control for dose reduction was used. FINDINGS: There is cerebral cortical atrophy. There is no mass effect nor midline shift. There is enlargement o f the ventricles. There is no evidence of intracranial hemorrhage. The calvarium is intact. I see no bony destructive process. IMPRESSION: CEREBRAL ATROPHY. NO ACUTE INTRACRANIAL ABNORMALITY. NO CHANGE.
[2018-04-20 23:16] LABS: ALT 27 U/L (21-72); AST 16 U/L (17-59); Albumin 3.8 g/dL (3.5-5.0); Alkaline Phosphatase 60 U/L (38-126); Anion Gap 7 mmol/L; Blood Urea Nitrogen 18 mg/dL (9-20); Calcium 9.2 mg/dL (8.4-10.2); Carbon Dioxide 24 mmol/L (22-30); Chloride 106 mmol/L (98-107); Glucose 131 mg/dL (74-99); Lipase 75 U/L (23-300); Phosphorus 1.4 mg/dL (2.5-4.5); Potassium 3.5 mmol/L (3.5-5.1); Sodium 137 mmol/L (137-145); Total Bilirubin 0.6 mg/dL (0.2-1.3); Total Protein 6.2 g/dL (6.3-8.2)
[2018-04-20 23:21] LABS: Creatine Kinase 46 U/L (55-170)
[2018-04-20 23:22] LABS: INR 1.1 (<1.2); Partial Thromboplastin Time 22.4 sec (22.0-30.0)
[2018-04-20 23:34] LABS: Creatine Kinase MB 0.3 ng/mL (0.0-2.4); Troponin I <0.012 ng/mL (0.000-0.034)
[2018-04-20 23:54] LABS: Appearance,Urine Clear (Clear); Bilirubin,Urine Negative (Negative); Blood,Urine Negative (Negative); Color,Urine Yellow; Glucose,Urine (UA) Negative (Negative); Ketones,Urine 2+ (Negative); Leukocyte Esterase,Urine Negative (Negative); Nitrite,Urine Negative (Negative); PH, Urine 8.5 (5.0-8.0); Protein,Urine Trace (Negative); Specific Gravity,Urine 1.013 (1.001-1.035); Urobilinogen,Urine <2.0 mg/dL (<2.0)
[2018-04-21 00:30] VITALS: BP 116/70; PULSE 72; RESP 18
--- NOTE | 2018-04-22 07:46 | CDI ---
Documentation Clarification OP Dear Mac GORDILLO, DO Please do addendum to ED report for HPI , Physical exam and MDM. Thank you, Aisha Álvarez [employer] Consultant If you have any question, Please contact loading manager at [phone] [facility]
== END 2018-04-21 00:27 | disposition home or self-care (01) ==
LOC: EC 21:03
DX: E86.0 Dehydration (principal); R11.2 Nausea with vomiting, unspecified; R00.1 Bradycardia, unspecified; R10.9 Unspecified abdominal pain; R50.9 Fever, unspecified; R53.1 Weakness; F03.90 Unspecified dementia, unspecified severity, without behavioral disturbance, psychotic disturbance, mood disturbance, and anxiety; Z87.891 Personal history of nicotine dependence; Z79.899 Other long term (current) drug therapy
CPT/HCPCS: 96361 ×3; 96374 ×2; 96375 ×2; 99285 ×2; 36415; 93005; 80053; 82550; 82553; 83605; 83690; 83735; 84100; 84484; 85025; 85610; 85730; 81003; 87086; 70450; J2060; J2405

== ENCOUNTER 2018-05-20 19:01 | Inpatient (IN) | payer MEDICARE ==
[2018-05-20] MEDS ORDERED: SODIUM CHLORIDE 0.9% 1,000 ML IV STA (19:41)
--- NOTE | 2018-05-20 19:41 | ED ---
Dizziness HPI - General Chief Complaint: Dizziness Stated Complaint: Dizziness Time Seen by Provider: 05/20/18 19:39 Source: patient, RN notes reviewed, old records reviewed Mode of arrival: wheelchair Limitations: physical limitation - History of Present Illness Initial Comments: This is a 62-year-old male the ER for evaluation of dizziness dizziness lightheadedness, not feeling well. Patient is syncopal episode prior to arrival. Patient is significant history of Lewy body. dementia. Patient again had syncopal episode today has been dizzy feel like the room is spinning lightheaded. No headaches. Patient is disease is been progressing significantly. He has been to the ER multiple times for similar complaint. At this time he admits to mild confusion states his confusion has been significantly worsening. Denies any fevers or any other issues no recent medication changes. Patient did see his neurologist 2 weeks ago and is scheduled to see again in 6 months MD Complaint: dizziness, lightheadedness, near syncope (For syncopal event) -: days(s) (2) Timing: gradual onset, waxing/waning Description: lightheadedness History of Same: Yes History of Trauma: Yes (Fall from syncope) Severity: mild Improves With: remaining still Worsens With: movement, exertion Associated Symptoms: denies other symptoms - Related Data Home Medications Medication Instructions Recorded Confirmed Rivastigmine [Rivastigmine 1 patch TRANSDERM DAILY 09/07/17 05/20/18 13.3MG/24Hr] Memantine [Namenda] 10 mg PO BID 04/20/18 05/20/18 traZODone HCL 50 mg PO HS 04/20/18 05/20/18 Tolterodine Tartrate [Detrol LA] 4 mg PO HS 05/20/18 05/20/18 Previous Rx's Medication Instructions Recorded Meclizine [Antivert] 25 mg PO BID PRN #20 tab 02/26/18 Allergies Allergy/AdvReac Type Severity Reaction Status Date / Time No Known Allergies Allergy Verified 05/20/18 19:46 Review of Systems ROS Statement: Those systems with pertinent positive or pertinent negative responses have been documented in the HPI. ROS Other: All systems not noted in ROS Statement are negative. Past Medical History Past Medical History: Dementia Additional Past Medical History / Comment(s): dizziness History of Any Multi-Drug Resistant Organisms: None Reported Past Surgical History: Tonsillectomy Past Psychological History: No Psychological Hx Reported Smoking Status: Former smoker Past Alcohol Use History: Rare Past Drug Use History: None Reported General Exam Limitations: physical limitation General appearance: alert, in no apparent distress Head exam: Present: atraumatic, normocephalic, normal inspection Eye exam: Present: normal appearance, PERRL, EOMI. Absent: scleral icterus, conjunctival injection, periorbital swelling ENT exam: Present: normal exam, mucous membranes moist Neck exam: Present: normal inspection. Absent: tenderness, meningismus, lymphadenopathy Respiratory exam: Present: normal lung sounds bilaterally. Absent: respiratory distress, wheezes, rales, rhonchi, stridor Cardiovascular Exam: Present: regular rate, normal rhythm, normal heart sounds. Absent: systolic murmur, diastolic murmur, rubs, gallop, clicks GI/Abdominal exam: Present: soft, normal bowel sounds. Absent: distended, tenderness, guarding, rebound, rigid Extremities exam: Present: normal inspection, full ROM, normal capillary refill. Absent: tenderness, pedal edema, joint swelling, calf tenderness Back exam: Present: normal inspection Neurological exam: Present: alert, oriented X3, CN II-XII intact Psychiatric exam: Present: normal affect, normal mood Skin exam: Present: warm, dry, intact, normal color. Absent: rash Course Vital Signs 05/20/18 05/20/18 05/20/18 19:24 20:50 21:10 Temperature 97.7 F Pulse Rate 70 79 65 Respiratory 19 17 16 Rate Blood Pressure 131/87 130/71 169/133 O2 Sat by Pulse 100 99 Oximetry - Reevaluation(s) Reevaluation #1: 05/20/18 22:11 Medical record is reviewed including prior ER visits for similar complaint Reevaluation #2: 05/20/18 23:08 patient becoming more altered, combative, not acting appropriately, needing chemical sedation EKG Findings - EKG Comments: EKG Findings:: EKG shows sinus rhythm rate of 53, TN 152, QRS 04, QTc 427 Medical Decision Making - Medical Decision Making 62 male to ED w recurrent AMS, syncope, dizziness, patient remaining delirious w worseing of dementia, will admit for neuro evaluation - Lab Data Result diagrams: 05/20/18 20:22 05/20/18 20:22 Lab Results 05/20/18 05/20/18 05/20/18 Range/Units 20:22 20:22 20:22 WBC 10.3 (3.8-10.6) k/uL RBC 4.99 (4.30-5.90) m/uL Hgb 16.2 (13.0-17.5) gm/dL Hct 46.9 (39.0-53.0) % MCV 93.9 (80.0-100.0) fL MCH 32.4 (25.0-35.0) pg MCHC 34.5 (31.0-37.0) g/dL RDW 12.0 (11.5-15.5) % Plt Count 284 (150-450) k/uL Neutrophils % 86 % Lymphocytes % 8 % Monocytes % 5 % Eosinophils % 1 % Basophils % 0 % Neutrophils # 8.9 H (1.3-7.7) k/uL Lymphocytes # 0.8 L (1.0-4.8) k/uL Monocytes # 0.5 (0-1.0) k/uL Eosinophils # 0.1 (0-0.7) k/uL Basophils # 0.0 (0-0.2) k/uL PT (9.0-12.0) sec INR (<1.2) APTT (22.0-30.0) sec Sodium 139 (137-145) mmol/L Potassium 3.7 (3.5-5.1) mmol/L Chloride 104 (98-107) mmol/L Carbon Dioxide 24 (22-30) mmol/L Anion Gap 11 mmol/L BUN 16 (9-20) mg/dL Creatinine 0.85 (0.66-1.25) mg/dL Est GFR (CKD-EPI)AfAm >90 (>60 ml/min/1.73 sqM) Est GFR (CKD-EPI)NonAf >90 (>60 ml/min/1.73 sqM) Glucose 140 H (74-99) mg/dL Calcium 10.2 (8.4-10.2) mg/dL Phosphorus 1.4 L (2.5-4.5) mg/dL Magnesium 2.1 (1.6-2.3) mg/dL Total Bilirubin 1.2 (0.2-1.3) mg/dL AST 17 (17-59) U/L ALT 25 (21-72) U/L Alkaline Phosphatase 61 (38-126) U/L Total Creatine Kinase 36 L (55-170) U/L CK-MB (CK-2) 0.2 (0.0-2.4) ng/mL CK-MB (CK-2) Rel Index 0.6 Troponin I <0.012 (0.000-0.034) ng/mL Total Protein 7.1 (6.3-8.2) g/dL Albumin 4.4 (3.5-5.0) g/dL Urine Color Urine Appearance (Clear) Urine pH (5.0-8.0) Ur Specific [place] (1.001-1.035) Urine Protein (Negative) Urine Glucose (UA) (Negative) Urine Ketones (Negative) Urine Blood (Negative) Urine Nitrite (Negative) Urine Bilirubin (Negative) Urine Urobilinogen (<2.0) mg/dL Ur Leukocyte Esterase (Negative) 05/20/18 05/20/18 Range/Units 20:22 21:25 WBC (3.8-10.6) k/uL RBC (4.30-5.90) m/uL Hgb (13.0-17.5) gm/dL Hct (39.0-53.0) % MCV (80.0-100.0) fL MCH (25.0-35.0) pg MCHC (31.0-37.0) g/dL RDW (11.5-15.5) % Plt Count (150-450) k/uL Neutrophils % % Lymphocytes % % Monocytes % % Eosinophils % % Basophils % % Neutrophils # (1.3-7.7) k/uL Lymphocytes # (1.0-4.8) k/uL Monocytes # (0-1.0) k/uL Eosinophils # (0-0.7) k/uL Basophils # (0-0.2) k/uL PT 10.7 (9.0-12.0) sec INR 1.0 (<1.2) APTT 24.5 (22.0-30.0) sec Sodium (137-145) mmol/L Potassium (3.5-5.1) mmol/L Chloride (98-107) mmol/L Carbon Dioxide (22-30) mmol/L Anion Gap mmol/L BUN (9-20) mg/dL Creatinine (0.66-1.25) mg/dL Est GFR (CKD-EPI)AfAm (>60 ml/min/1.73 sqM) Est GFR (CKD-EPI)NonAf (>60 ml/min/1.73 sqM) Glucose (74-99) mg/dL Calcium (8.4-10.2) mg/dL Phosphorus (2.5-4.5) mg/dL Magnesium (1.6-2.3) mg/dL Total Bilirubin (0.2-1.3) mg/dL AST (17-59) U/L ALT (21-72) U/L Alkaline Phosphatase (38-126) U/L Total Creatine Kinase (55-170) U/L CK-MB (CK-2) (0.0-2.4) ng/mL CK-MB (CK-2) Rel Index Troponin I (0.000-0.034) ng/mL Total Protein (6.3-8.2) g/dL Albumin (3.5-5.0) g/dL Urine Color Yellow Urine Appearance Clear (Clear) Urine pH 8.0 (5.0-8.0) Ur Specific [place] 1.009 (1.001-1.035) Urine Protein Negative (Negative) Urine Glucose (UA) Negative (Negative) Urine Ketones 1+ H (Negative) Urine Blood Negative (Negative) Urine Nitrite Negative (Negative) Urine Bilirubin Negative (Negative) Urine Urobilinogen <2.0 (<2.0) mg/dL Ur Leukocyte Esterase Negative (Negative) - Radiology Data Radiology results: report reviewed (CT brain is negative for acute disease), image reviewed Disposition Clinical Impression: Nausea & vomiting, Syncope, Altered mental status, Dementia, Delirium, Lewy body dementia Disposition: ADMITTED IP TO THIS HOSP Condition: Fair Is patient prescribed a controlled substance at d/c from ED?: No Referrals: Des Ortiz MD [Primary Care Provider] - 1-2 days
[2018-05-20 20:48] LABS: Basophils % (A) 0 %; Eosinophils # (A) 0.1 k/uL (0-0.7); Eosinophils % (A) 1 %; HCT 46.9 % (39.0-53.0); HGB 16.2 gm/dL (13.0-17.5); Lymphocytes # (A) 0.8 k/uL (1.0-4.8); Lymphocytes % (A) 8 %; MCH 32.4 pg (25.0-35.0); MCHC 34.5 g/dL (31.0-37.0); MCV 93.9 fL (80.0-100.0); Mean Platelet Volume 7.6; Monocytes # (A) 0.5 k/uL (0-1.0); Monocytes % (A) 5 %; Neutrophils # (A) 8.9 k/uL (1.3-7.7); Neutrophils % (A) 86 %; Platelet Count 284 k/uL (150-450); RBC 4.99 m/uL (4.30-5.90); WBC 10.3 k/uL (3.8-10.6)
[2018-05-20 20:57] LABS: Partial Thromboplastin Time 24.5 sec (22.0-30.0); Prothrombin Time 10.7 sec (9.0-12.0)
[2018-05-20 21:00] LABS: ALT 25 U/L (21-72); AST 17 U/L (17-59); Albumin 4.4 g/dL (3.5-5.0); Alkaline Phosphatase 61 U/L (38-126); Anion Gap 11 mmol/L; Blood Urea Nitrogen 16 mg/dL (9-20); Calcium 10.2 mg/dL (8.4-10.2); Carbon Dioxide 24 mmol/L (22-30); Chloride 104 mmol/L (98-107); Glucose 140 mg/dL (74-99); Magnesium 2.1 mg/dL (1.6-2.3); Phosphorus 1.4 mg/dL (2.5-4.5); Potassium 3.7 mmol/L (3.5-5.1); Sodium 139 mmol/L (137-145); Total Bilirubin 1.2 mg/dL (0.2-1.3); Total Protein 7.1 g/dL (6.3-8.2)
[2018-05-20 21:04] LABS: Creatine Kinase 36 U/L (55-170)
[2018-05-20 21:16] LABS: Creatine Kinase MB 0.2 ng/mL (0.0-2.4); Troponin I <0.012 ng/mL (0.000-0.034)
--- NOTE | 2018-05-20 21:17 | CT ---
EXAMINATION TYPE: CT brain wo con DATE OF EXAM: 05/20/2018 COMPARISON: 04/20/2018 HISTORY: Weakness CT DLP: mGycm Automated exposure control for dose reduction was used. FINDINGS: There is some cerebral cortical atrophy. There is enlargement of the ventricles. There is no mass eff ect nor midline shift. There is no sign of intracranial hemorrhage. The calvarium is intact. IMPRESSION: CEREBRAL ATROPHY AND HYDROCEPHALUS. NO ACUTE INTRACRANIAL ABNORMALITY. NO CHANGE.
[2018-05-20] MEDS ORDERED: LORazepam 2 MG/ML INJ IV STA ×2 (21:39→22:51)
[2018-05-20 21:40] LABS: Appearance,Urine Clear (Clear); Bilirubin,Urine Negative (Negative); Blood,Urine Negative (Negative); Color,Urine Yellow; Glucose,Urine (UA) Negative (Negative); Ketones,Urine 1+ (Negative); Leukocyte Esterase,Urine Negative (Negative); Nitrite,Urine Negative (Negative); Protein,Urine Negative (Negative); Specific Gravity,Urine 1.009 (1.001-1.035); Urobilinogen,Urine <2.0 mg/dL (<2.0)
[2018-05-20] MEDS ORDERED: ONDANSETRON 4 MG/2 ML VIAL IVP STA (22:41)
[2018-05-20] MEDS ORDERED: SODIUM CHLORIDE 0.9% 1,000 ML IV ONE (23:38)
[2018-05-21] MEDS ORDERED: LORazepam 2 MG/ML INJ IV STA (00:34)
[2018-05-21] MEDS: LORazepam 2 MG/ML INJ IV PRN ×3 (03:38→21:30)
--- NOTE | 2018-05-21 08:18 | P.HPIM ---
History of Present Illness H&P Date: 05/21/18 Chief Complaint: Delirium This is a history of physical 62-year-old white male with known history of Lewy body dementia is had significant delirium. He had to give him sedative type medications stabilized in the emergency room rash night because he is becoming very combative. He now seems much more calm. Question need for placement element. We will consult neurology as necessary. He seems sedated and sleeping today. Review of Systems ROS unobtainable: due to mental status Past Medical History Past Medical History: Dementia Additional Past Medical History / Comment(s): dizziness History of Any Multi-Drug Resistant Organisms: None Reported Past Surgical History: Tonsillectomy Past Psychological History: No Psychological Hx Reported Smoking Status: Former smoker Past Alcohol Use History: Rare Past Drug Use History: None Reported Medications and Allergies Home Medications Medication Instructions Recorded Confirmed Type Rivastigmine [Rivastigmine 1 patch TRANSDERM DAILY 09/07/17 05/20/18 History 13.3MG/24Hr] Meclizine [Antivert] 25 mg PO BID PRN #20 tab 02/26/18 05/20/18 Rx Memantine [Namenda] 10 mg PO BID 04/20/18 05/20/18 History traZODone HCL 50 mg PO HS 04/20/18 05/20/18 History Tolterodine Tartrate [Detrol LA] 4 mg PO HS 05/20/18 05/20/18 History Allergies Allergy/AdvReac Type Severity Reaction Status Date / Time No Known Allergies Allergy Verified 05/20/18 19:46 Physical Exam Vitals: Vital Signs Temp Pulse Pulse Resp BP BP Pulse Ox 05/21/18 07:00 98.2 F 66 16 154/75 96 05/21/18 01:26 18 05/21/18 00:55 98.7 F 67 18 126/75 95 05/21/18 00:05 62 18 115/62 98 05/20/18 21:10 65 16 169/133 05/20/18 20:50 79 17 130/71 99 05/20/18 19:24 97.7 F 70 19 131/87 100 Intake and Output 05/20/18 05/21/18 05/21/18 22:59 06:59 14:59 Intake Total 100 Balance 100 Intake: Oral 100 Other: Voiding Method Urinal # Voids 2 Weight 86.183 kg - Constitutional General appearance: no acute distress - EENT Eyes: EOMI - Neck Neck: no lymphadenopathy - Respiratory Respiratory: bilateral: CTA - Cardiovascular Rhythm: regular Heart sounds: normal: S1, S2 Abnormal Heart Sounds: no S3 Gallop - Gastrointestinal General gastrointestinal: soft, no tenderness - Psychiatric Psychiatric: no A&O x's 3, no intact judgment & insight Results CBC & Chem 7: 05/20/18 20:22 05/20/18 20:22 Labs: Abnormal Lab Results - Last 24 Hours (Table) 05/20/18 05/20/18 05/20/18 Range/Units 20:22 20:22 20:22 Neutrophils # 8.9 H (1.3-7.7) k/uL Lymphocytes # 0.8 L (1.0-4.8) k/uL Glucose 140 H (74-99) mg/dL Phosphorus 1.4 L (2.5-4.5) mg/dL Total Creatine Kinase 36 L (55-170) U/L Urine Ketones (Negative) 05/20/18 Range/Units 21:25 Neutrophils # (1.3-7.7) k/uL Lymphocytes # (1.0-4.8) k/uL Glucose (74-99) mg/dL Phosphorus (2.5-4.5) mg/dL Total Creatine Kinase (55-170) U/L Urine Ketones 1+ H (Negative) Microbiology - Last 24 Hours (Table) 05/20/18 21:25 Urine Culture - Preliminary Urine,Voided Assessment and Plan (1) Altered mental status Current Visit: Yes Status: Acute Code(s): R41.82 - ALTERED MENTAL STATUS, UNSPECIFIED SNOMED Code(s): 109978371 (2) Delirium Current Visit: Yes Status: Acute Code(s): R41.0 - DISORIENTATION, UNSPECIFIED SNOMED Code(s): 9477677 (3) Lewy body dementia Current Visit: Yes Status: Acute Code(s): G31.83 - DEMENTIA WITH LEWY BODIES ; F02.80 - DEMENTIA IN OTH DISEASES CLASSD ELSWHR W/O BEHAVRL DISTURB SNOMED Code(s): 156840798 (4) Syncope Current Visit: Yes Status: Acute Code(s): R55 - SYNCOPE AND COLLAPSE SNOMED Code(s): 754299987 Plan: Check carotid Doppler and echocardiogram as necessary. We'll go ahead and mostly consult neurology and social director for possible placement. See orders otherwise. Time with Patient: Greater than 30
--- NOTE | 2018-05-21 09:17 | US ---
EXAMINATION TYPE: US carotid duplex BILAT DATE OF EXAM: 05/21/2018 COMPARISON: NONE CLINICAL HISTORY: syncope. EXAM MEASUREMENTS: RIGHT: Peak Systolic Velocity (PSV) cm/sec ----- Right CCA: 60.1 ----- Right ICA: 62.7 ----- Right ECA: 76.8 ICA/CCA ratio: 1.0 RIGHT: End Diastole cm/sec ----- Right CCA: 13.0 ----- Right ICA: 16.5 ----- Right ECA: 13.1 LEFT: Peak Systolic Velocity (PSV) cm/sec ----- Left CCA: 91.9 ----- Left ICA: 87.8 ----- Left ECA: 96.6 ICA/CCA ratio: 1.0 LEFT: End Diastole cm/sec ----- Left CCA: 20.8 ----- Left ICA: 26.3 ----- Left ECA: 12.0 VERTEBRALS (direction of flow): Right Vertebral: Antegrade Left Vertebral: Antegrade Rhythm: Normal Grayscale images show mild to moderate peripheral plaque bilaterally. Velocity measurements and ratio s remain within normal limits bilaterally. IMPRESSION: No hemodynamically significant stenosis seen in either internal carotid artery. Criteria for Assigning % of Stenosis / Diameter reduction (Estimation based on the indirect measurements of the internal carotid artery velocities (ICA PSV). 1. Normal (no stenosis)=ICA PSV < 125 cm/s: ratio < 2.0: ICA EDV<40 cm/s. 2. Less than 50% stenosis=ICA PSV < 125 cm/s: ratio < 2.0: ICA EDV<40 cm/s. 3. 50 to 69% stenosis=ICA PSV of 125 to 230 cm/s: ration 2.0 ? 4.0: ICA EDV 40-100 cm/s. 4. Greater than 70% stenosis to near occlusion= ICA PSV > 230 cm/s: ratio > 4.0: ICA EDV > 100 cm/s. 5. Near occlusion= ICA PSV velocities may be low or undetectable: variable ratio and ICA EDV. 6. Total occlusion=unable to detect flow.
[2018-05-21 10:27] VITALS: BMI 28.8
[2018-05-21] MEDS: RIVASTIGMINE 13.3MG/24HR PATCH TRANSDERM SCH (10:31)
[2018-05-21] MEDS: MEMANTINE 10 MG TAB PO SCH ×2 (10:31→20:23)
[2018-05-21] MEDS: ENOXAPARIN 40 MG/0.4 ML SYRINGE SQ SCH (10:31)
--- NOTE | 2018-05-21 12:12 | ECHOF ---
Referral Reason:syncope MEASUREMENTS -------- HEIGHT: 0.0 cm WEIGHT: 0.0 kg BP: 154/75 IVSd: 1.0 cm (0.6 - 1.1) LVIDd: 4.8 cm (3.9 - 5.3) LVPWd: 1.0 cm (0.6 - 1.1) IVSs: 1.4 cm LVIDs: 2.5 cm LVPWs: 1.4 cm LAESV Index (A-L): 33.94 ml/m Ao Diam: 3.8 cm (2.0 - 3.7) AV Cusp: 2.5 cm (1.5 - 2.6) LA Diam: 3.2 cm (2.7 - 3.8) EPSS: 0.9 cm MV E David: 0.70 m/s MV DecT: 401 ms MV A David: 1.01 m/s MV E/A Ratio: 0.70 AV maxP.00 mmHg AV meanP.06 mmHg AR PHT: 646 ms RAP: 5.00 mmHg RVSP: 19.99 mmHg MV EF SLOPE: 105.16 mm/s (70 - 150) MV EXCURSION: 1.69 cm (> 18.000) FINDINGS -------- Sinus rhythm. This was a technically adequate study. The left ventricular size is normal. Left ventricular wall thickness is normal. Overall left vent ricular systolic function is normal with, an EF between 55 - 60 %. The right ventricular wall thickness is normal measuring < 5mm. LA is moderately dilated 34-39 ml/m2 The right atrial size is normal. There is mild aortic valve sclerosis. There is mild aortic regurgitation. There is no evidence of aortic stenosis. The mitral valve leaflets are mildly thickened. Mild mitral regurgitation is present. Trace tricuspid regurgitation present. Right ventricular systolic pressure is normal at < 35 mmHg. The right ventricular systolic pressure, as measured by Doppler, is 19.99mmHg. The pulmonic valve was not well visualized. There is no pulmonic regurgitation present. The aortic root size is normal. Normal inferior vena cava with normal inspiratory collapse consistent with estimated right atrial pre ssure of 5 mmHg. There is no pericardial effusion. CONCLUSIONS -------- 1. Sinus rhythm. 2. This was a technically adequate study. 3. The left ventricular size is normal. 4. Left ventricular wall thickness is normal. 5. LA is moderately dilated 34-39 ml/m2 6. There is mild aortic valve sclerosis. 7. There is mild aortic regurgitation. 8. The mitral valve leaflets are mildly thickened. 9. Mild mitral regurgitation is present. 10. Trace tricuspid regurgitation present. 11. Right ventricular systolic pressure is normal at < 35 mmHg. 12. The pulmonic valve was not well visualized. 13. The aortic root size is normal. 14. There is no pericardial effusion. PACKAGING SUPERVISOR: Gerson Brown RDCS
[2018-05-21] MEDS: traZODone HCL 50 MG TAB PO SCH (20:23)
[2018-05-21] MEDS: OXYBUTYNIN XL 5 MG TAB.ER.24 PO SCH (20:23)
--- NOTE | 2018-05-21 22:08 | CONS ---
CONSULTATION DATE OF CONSULTATION: 05/21/2018 CHIEF COMPLAINT: Altered mental status. HISTORY OF PRESENT ILLNESS: Mr. Kimball is a pleasant 62-year-old male who is being evaluated by the neurology service per the request of Dr. Ortiz for altered mental status. The patient was brought into [facility] by his family members, as he was acting more confused than usual. He was also having some combative behavior, which is not usual for him. According to his , who is at bedside, he was diagnosed with Lewy Body dementia back in 2013. He had been having memory issues for a few years prior to that diagnosis being made in 2013. He is currently on Namenda, trazodone and an Exelon patch. A CT scan of the brain was done which showed generalized atrophy and hydrocephalus. His states that he has been having urinary incontinence at night, which is new for him. Also, over the past year his gait has been quite slow and unsteady and this has progressively gotten worse. A carotid Doppler was done which showed no hemodynamically significant stenosis. His CBC, INR, comprehensive metabolic profile, cardiac enzymes and urinalysis were all reviewed and were normal. At the time of my evaluation, the patient is sitting up in his bed and appears to be in no acute distress. He is awake but disoriented, which is his baseline. PAST MEDICAL HISTORY: 1. Dementia. 2. History of tonsillectomy. SOCIAL HISTORY: The patient is a former smoker. He rarely drinks alcohol. He denies any drug use. FAMILY HISTORY: Noncontributory. HOME MEDICATIONS: Reviewed in the chart. ALLERGIES: NO KNOWN DRUG ALLERGIES. REVIEW OF SYSTEMS: Unable to obtain due to cognitive status. PHYSICAL EXAMINATION: Vital signs show a temperature of 96.9, pulse 86, respirations 16, blood pressure 155/79. GENERAL APPEARANCE: The patient is a well-developed male who appears to be in no acute distress. HEENT: Normocephalic, atraumatic. No facial asymmetry is seen. NECK: Supple with no masses felt. CARDIOVASCULAR: Regular rate and rhythm. ABDOMEN: Nontender, nondistended. Extremities showed no edema or clubbing. NEUROLOGICAL EXAMINATION: The patient is awake and oriented to person only. He does follow commands appropriately. No lateralizing weakness is seen. No resting tremor is noticed. No facial asymmetry is seen on cranial nerve testing. Sensory exam was normal to light touch in all 4 extremities. IMPRESSION: 1. Altered mental status. 2. History of dementia. 3. Hydrocephalus. RECOMMENDATION: The patient does have obvious history of dementia, but I doubt any Lewy Body body dementia. Patients who have Lewy Body dementia progress rapidly over 2 years to a somewhat vegetative state. This patient was diagnosed with Lewy Body in 2013 and he had memory issues for a few years prior to that. The course of this progression is more consistent with Alzheimer's type and he is on medications for this with both Exelon transdermal patch and Namenda. More recently, he has been having urinary incontinence and gait instability, as mentioned above. His CT scan of the brain did show evidence of hydrocephalus. I had a lengthy discussion with the patient's and son regarding the possibility of him having normal-pressure hydrocephalus on top of his Alzheimer's-type dementia. The patient will need a lumbar puncture to be done with large-volume drainage to check if there are any improvements in his new worsening symptoms. This will be scheduled in the outpatient setting. For now, I would continue his current treatment with Exelon patch and Namenda. No further inpatient neurological workup is needed at this time. From a neurology standpoint, he is cleared for discharge. I will continue to follow with you as needed. Thank you, Dr. Ortiz, for allowing me to participate in the care of your patient. If you have any questions, please feel free to contact me. SANDEEP / BABS: [id number] /
[2018-05-22] MEDS: RIVASTIGMINE 13.3MG/24HR PATCH TRANSDERM SCH (10:18)
[2018-05-22] MEDS: MEMANTINE 10 MG TAB PO SCH ×2 (10:18→21:24)
[2018-05-22] MEDS: ENOXAPARIN 40 MG/0.4 ML SYRINGE SQ SCH (10:19)
--- NOTE | 2018-05-22 17:50 | XR ---
EXAMINATION TYPE: XR chest 1V portable DATE OF EXAM: 05/22/2018 COMPARISON: 02/26/2018 HISTORY: Heart failure short of breath TECHNIQUE: Single frontal view of the chest is obtained. FINDINGS: There is no heart failure nor confluent pneumonic infiltrate. Costophrenic angles are chay r. There is poor inspiration. IMPRESSION: Poor inspiration that is worse than last exam. No heart failure seen.
--- NOTE | 2018-05-22 19:25 | PN ---
PROGRESS NOTE DATE OF SERVICE: 05/22/2018 I am covering for Dr. Ortiz This 62-year-old gentleman with a past medical history of multiple medical problems admitted with change in mental status, which was possibly secondary to acute on chronic metabolic encephalopathy. The patient had a 2D echo with Doppler as a part of the workup which showed mild valvular abnormalities and ejection fraction is about 55-60 percent. The patient is barely communicative, still appears to be confused. Carotid Doppler showed no hemodynamically significant stenosis. PAST MEDICAL HISTORY: Reviewed. REVIEW OF SYSTEMS: Could not be taken. The patient has baseline mental status changes. MEDICATIONS: The medications are: 1. Lovenox 40 mg subcu daily. 2. Ativan 1 mg q.4h p.r.n. 3. Namenda 10 mg b.i.d. 4. Ditropan 10 mg q.h.s. 5. Exelon patch 1 application daily. 6. Desyrel 50 mg p.o. q.h.s. PHYSICAL EXAM: Patient is conscious but confused. Pulse 73, blood pressure 124/70, respiration 18, temperature 98.2, pulse ox 98% on room air. HEENT: Conjunctivae normal. Oral mucosa moist. Neck is no jugular venous distention. No carotid bruit. No lymph node enlargement. Cardiovascular: S1, S2 muffled. RESPIRATORY: Breath sounds diminished in the bases. Scattered rhonchi and crackles. ABDOMEN: Soft, nontender. Legs are no edema. No swelling. CENTRAL NERVOUS SYSTEM: No focal deficits. LAB STUDIES: At this time, shows WBC 10.2, hemoglobin 16.2 and glucose is 140. UA noted. ASSESSMENT: 1. Change in mental status acute on chronic metabolic encephalopathy. 2. Delirium. 3. Lewy-Body dementia. 4. Syncope. 5. History of dementia. 6. History of dizziness. 7. Tonsillectomy. RECOMMENDATIONS AND DISCUSSION: Recommend to continue current medications, management and symptomatic treatment. Otherwise, at this time, I recommend supplement vitamins and closely follow with multiple consultants. There is no evidence of infection at this time. EKG EKG is recommended. Chest x-ray the chest x-ray and continue to monitor. Further recommendations to follow. MMODL / IJN: [id number] / MTDD
[2018-05-22] MEDS: traZODone HCL 50 MG TAB PO SCH (21:24)
[2018-05-22] MEDS: OXYBUTYNIN XL 5 MG TAB.ER.24 PO SCH (21:24)
[2018-05-23 07:37] LABS: Basophils % (A) 0 %; Eosinophils # (A) 0.1 k/uL (0-0.7); Eosinophils % (A) 2 %; HCT 46.5 % (39.0-53.0); HGB 15.8 gm/dL (13.0-17.5); Lymphocytes # (A) 1.3 k/uL (1.0-4.8); Lymphocytes % (A) 17 %; MCH 32.4 pg (25.0-35.0); MCV 95.3 fL (80.0-100.0); Mean Platelet Volume 7.2; Monocytes # (A) 0.5 k/uL (0-1.0); Monocytes % (A) 6 %; Neutrophils # (A) 5.5 k/uL (1.3-7.7); Neutrophils % (A) 73 %; Platelet Count 235 k/uL (150-450); RBC 4.88 m/uL (4.30-5.90); RDW 12.1 % (11.5-15.5); WBC 7.5 k/uL (3.8-10.6)
[2018-05-23 07:42] LABS: Anion Gap 8 mmol/L; Blood Urea Nitrogen 14 mg/dL (9-20); Calcium 9.8 mg/dL (8.4-10.2); Carbon Dioxide 26 mmol/L (22-30); Chloride 107 mmol/L (98-107); Glucose 100 mg/dL (74-99); Potassium 4.3 mmol/L (3.5-5.1); Sodium 141 mmol/L (137-145)
[2018-05-23] MEDS: MEMANTINE 10 MG TAB PO SCH ×2 (08:19→21:16)
[2018-05-23] MEDS: ENOXAPARIN 40 MG/0.4 ML SYRINGE SQ SCH (08:19)
[2018-05-23] MEDS: RIVASTIGMINE 13.3MG/24HR PATCH TRANSDERM SCH (08:20)
[2018-05-23] MEDS: THIAMINE 100 MG TAB PO SCH (11:05)
[2018-05-23] MEDS: MULTIVITAMINS, THERA 1 EACH TAB PO SCH (11:05)
[2018-05-23] MEDS: FOLIC ACID 1 MG TAB PO SCH (11:05)
--- NOTE | 2018-05-23 17:53 | PN ---
PROGRESS NOTE DATE OF SERVICE: 05/23/[address] Ortiz. This 62-year-old gentleman admitted with change in mental status also had a little bit of dementia. The patient apparently had significant issues during the night and according to the staff, the patient is more confused. Patient also has some gait dysfunction. No chest pain. No palpitations. No fever. EXAM: Patient is confused. Pulse 65, blood pressure 101/52, respiration 16, temperature 97.4, pulse ox 98% on room air. HEENT: Conjunctivae normal. Oral mucosa moist. NECK: No jugular venous distention. No lymph node enlargement. CARDIOVASCULAR: S1, S2. RESPIRATORY: Diminished breath sounds at the bases. Bilateral scattered rhonchi, no crackles. ABDOMEN: Soft, nontender. LEGS: No swelling. NERVOUS SYSTEM: Mild diffuse weakness. LABS: CBC normal and glucose 100. UA noted. ASSESSMENT: 1. Change in mental status, possible acute on chronic metabolic encephalopathy, multifactorial. 2. Acute delirium. 3. Lewy body dementia. 4. Syncope history. 5. History of dementia. 6. History of dizziness. 7. Tonsillectomy. 8. Gait dysfunction. RECOMMENDATIONS AND DISCUSSION: In this 62-year-old gentleman who presented with multiple complex medical issues, will monitor the patient closely, continue the current medication, continue the symptomatic management. Will recommend PT/OT evaluation, possible ECF rehab. Otherwise, continue the rest of medications. DVT prophylaxis. Neurology has been consulted. Further recommendations to follow. MMODL / IJN: [id number] /
[2018-05-23] MEDS: OXYBUTYNIN XL 5 MG TAB.ER.24 PO SCH (21:16)
[2018-05-23] MEDS: traZODone HCL 50 MG TAB PO SCH (21:16)
[2018-05-24 08:09] LABS: Anion Gap 7 mmol/L; Blood Urea Nitrogen 13 mg/dL (9-20); Calcium 9.9 mg/dL (8.4-10.2); Carbon Dioxide 28 mmol/L (22-30); Chloride 106 mmol/L (98-107); Glucose 98 mg/dL (74-99); Potassium 4.2 mmol/L (3.5-5.1); Sodium 141 mmol/L (137-145)
[2018-05-24 08:48] LABS: Basophils % (A) 0 %; Eosinophils # (A) 0.1 k/uL (0-0.7); Eosinophils % (A) 2 %; HCT 45.2 % (39.0-53.0); HGB 15.7 gm/dL (13.0-17.5); Lymphocytes # (A) 1.2 k/uL (1.0-4.8); Lymphocytes % (A) 17 %; MCH 33.2 pg (25.0-35.0); MCHC 34.7 g/dL (31.0-37.0); MCV 95.5 fL (80.0-100.0); Mean Platelet Volume 7.6; Monocytes # (A) 0.4 k/uL (0-1.0); Monocytes % (A) 6 %; Neutrophils # (A) 5.4 k/uL (1.3-7.7); Neutrophils % (A) 74 %; Platelet Count 239 k/uL (150-450); RBC 4.73 m/uL (4.30-5.90); RDW 12.1 % (11.5-15.5); WBC 7.3 k/uL (3.8-10.6)
[2018-05-24] MEDS: ENOXAPARIN 40 MG/0.4 ML SYRINGE SQ SCH (09:31)
[2018-05-24] MEDS: RIVASTIGMINE 13.3MG/24HR PATCH TRANSDERM SCH (09:31)
[2018-05-24] MEDS: MEMANTINE 10 MG TAB PO SCH ×2 (09:31→20:17)
[2018-05-24] MEDS: MULTIVITAMINS, THERA 1 EACH TAB PO SCH (11:55)
[2018-05-24] MEDS: THIAMINE 100 MG TAB PO SCH (11:55)
[2018-05-24] MEDS: FOLIC ACID 1 MG TAB PO SCH (11:55)
[2018-05-24] MEDS ORDERED: risperiDONE 0.5 MG TAB PO PRN (15:14)
[2018-05-24] MEDS: traZODone HCL 50 MG TAB PO SCH (20:17)
[2018-05-24] MEDS: OXYBUTYNIN XL 5 MG TAB.ER.24 PO SCH (20:17)
--- NOTE | 2018-05-24 20:17 | PN ---
PROGRESS NOTE DATE OF SERVICE: 05/24/2018 I am covering for Dr. Ortiz. This 62-year-old gentleman who was admitted with change in mental status, possible acute metabolic encephalopathy, is being closely monitored. Patient also has Lewy body dementia. No chest pain. No palpitations. No fever. EXAM: The patient is conscious, oriented x1. Pulse 71, blood pressure 116/70, respiration 18, temperature 98.2, pulse ox 98% on room air. HEENT: Conjunctivae normal. Oral mucosa moist. NECK: No jugular venous distention. No lymph node enlargement. CARDIOVASCULAR: S1, S2. RESPIRATORY: Diminished breath sounds at the bases. No rhonchi, no crackles. ABDOMEN: Soft, nontender. LEGS: No swelling. NERVOUS SYSTEM: No focal deficits. LABS: CBC and BMP within normal. ASSESSMENT: 1. Change in mental status, acute on chronic metabolic encephalopathy. 2. Lewy body dementia. 3. Acute delirium. 4. Syncope history. 5. History of dementia. 6. History of dizziness. 7. History of tonsillectomy. 8. History of gait dysfunction. RECOMMENDATIONS: Recommend to continue current management, continue symptomatic treatment. Otherwise, I would recommend close follow up with Neurology. Otherwise, add Risperdal to the current regimen and neurology evaluation. Dr. Ortiz will follow tomorrow. MMODL / IJN: [id number] /
[2018-05-25 00:25] VITALS: RESP 16
[2018-05-25] MEDS: ENOXAPARIN 40 MG/0.4 ML SYRINGE SQ SCH (08:18)
[2018-05-25] MEDS: MULTIVITAMINS, THERA 1 EACH TAB PO SCH (08:19)
[2018-05-25] MEDS: THIAMINE 100 MG TAB PO SCH (08:19)
[2018-05-25] MEDS: MEMANTINE 10 MG TAB PO SCH (08:19)
[2018-05-25] MEDS: FOLIC ACID 1 MG TAB PO SCH (08:19)
[2018-05-25] MEDS: RIVASTIGMINE 13.3MG/24HR PATCH TRANSDERM SCH (08:19)
--- NOTE | 2018-05-25 08:27 | P.DS ---
Providers Date of admission: 05/20/18 23:38 Attending physician: Des Ortiz Consults: 05/21/18 08:18 Consult Physician Routine Consulting Provider: Saeed Bowman Consult Reason/Comments: delirium Do you want consulting provider notified?: Yes Primary care physician: Des Ortiz - Discharge Diagnosis(es) (1) Altered mental status Current Visit: Yes Status: Acute (2) Delirium Current Visit: Yes Status: Acute (3) Lewy body dementia Current Visit: Yes Status: Acute (4) Syncope Current Visit: Yes Status: Acute Hospital Course: This discharge was 6-year-old white male with dementia who was admitted consider him. He was started on Restoril. Neurology was consulted. The patient is now stabilizing and will be discharged with home health. Patient is to follow-up with me in 3-5 days. Patient Condition at Discharge: Fair Plan - Discharge Summary New Discharge Prescriptions: New Folic Acid 1 mg PO DAILY@1200 tab Multivitamins, Thera [Multivitamin (formulary)] 1 each PO DAILY@1200 tab risperiDONE [RisperDAL] 0.5 mg PO HS PRN #30 tab PRN Reason: Agitation Continue Rivastigmine [Rivastigmine 13.3MG/24Hr] 1 patch TRANSDERM DAILY Meclizine [Antivert] 25 mg PO BID PRN #20 tab PRN Reason: dizziness traZODone HCL 50 mg PO HS Memantine [Namenda] 10 mg PO BID Tolterodine Tartrate [Detrol LA] 4 mg PO HS Discharge Medication List Rivastigmine [Rivastigmine 13.3MG/24Hr] 1 patch TRANSDERM DAILY 09/07/17 [ History] Meclizine [Antivert] 25 mg PO BID PRN #20 tab 02/26/18 [Rx] Memantine [Namenda] 10 mg PO BID 04/20/18 [History] traZODone HCL 50 mg PO HS 04/20/18 [History] Tolterodine Tartrate [Detrol LA] 4 mg PO HS 05/20/18 [History] Folic Acid 1 mg PO DAILY@1200 tab 05/25/18 [Rx] Multivitamins, Thera [Multivitamin (formulary)] 1 each PO DAILY@1200 tab [Rx] risperiDONE [RisperDAL] 0.5 mg PO HS PRN #30 tab 05/25/18 [Rx] Follow up Appointment(s)/Referral(s): Des Ortiz MD [Primary Care Provider] - 1-2 days Saeed Bowman MD [STAFF PHYSICIAN] - 3 Days (Needs lumbar punture, large volume drainage.) [facility] Visiting Nurse, [NON-STAFF] - Discharge Disposition: HOME WITH HOME HEALTH SERVICES
[2018-05-25 09:17] LABS: Basophils % (A) 0 %; Eosinophils # (A) 0.1 k/uL (0-0.7); Eosinophils % (A) 1 %; HCT 45.9 % (39.0-53.0); HGB 15.5 gm/dL (13.0-17.5); Lymphocytes # (A) 1.7 k/uL (1.0-4.8); Lymphocytes % (A) 22 %; MCH 32.5 pg (25.0-35.0); MCHC 33.8 g/dL (31.0-37.0); MCV 96.3 fL (80.0-100.0); Mean Platelet Volume 7.2; Monocytes # (A) 0.5 k/uL (0-1.0); Monocytes % (A) 6 %; Neutrophils # (A) 5.2 k/uL (1.3-7.7); Neutrophils % (A) 68 %; Platelet Count 248 k/uL (150-450); RBC 4.76 m/uL (4.30-5.90); RDW 12.3 % (11.5-15.5); WBC 7.7 k/uL (3.8-10.6)
[2018-05-25 09:32] LABS: Anion Gap 8 mmol/L; Blood Urea Nitrogen 15 mg/dL (9-20); Carbon Dioxide 27 mmol/L (22-30); Chloride 106 mmol/L (98-107); Glucose 93 mg/dL (74-99); Potassium 4.9 mmol/L (3.5-5.1); Sodium 141 mmol/L (137-145)
[2018-05-25 15:32] VITALS: BP 124/75; PULSE 71; TEMP 98.1
== END 2018-05-25 16:19 | disposition home health service (06) | DRG 57 ==
LOC: EC 19:01 → 4SSUR 23:08 → OBSVTOIN 23:38
PROVIDERS: ADMIT Family Medicine; ATTEND Family Medicine
DX: G31.83 Neurocognitive disorder with Lewy bodies (principal); F02.81 Dementia in other diseases classified elsewhere, unspecified severity, with behavioral disturbance; F05 Delirium due to known physiological condition; G91.9 Hydrocephalus, unspecified; R32 Unspecified urinary incontinence; Z87.891 Personal history of nicotine dependence
CPT/HCPCS: 36415; 70450; 71045; 80048; 80053; 81003; 82550; 82553; 83735; 84100; 84484; 85025; 85610; 85730; 87086; 93005; 93306; 93880; 96361; 96374; 96375; 96376; 99285

== ENCOUNTER 2018-09-11 16:35 | Emergency (ER) | payer MEDICARE ==
[2018-09-11 16:39] VITALS: TEMP 98
[2018-09-11] MEDS ORDERED: SODIUM CHLORIDE 0.9% 1,000 ML IV STA (17:14)
[2018-09-11] MEDS ORDERED: MECLIZINE 12.5 MG TAB PO STA (17:17)
[2018-09-11] MEDS ORDERED: ONDANSETRON 4 MG/2 ML VIAL IVP STA (17:17)
--- NOTE | 2018-09-11 17:24 | ED ---
General Adult HPI - General Chief complaint: Weakness Stated complaint: Dizziness, vomiting Time Seen by Provider: 09/11/18 16:49 Source: patient, RN notes reviewed, old records reviewed Mode of arrival: ambulatory Limitations: no limitations - History of Present Illness Initial comments: 62-year-old male history of recurrent vertigo presents with dizziness, vomiting. Patient had 3 episodes of vomiting prior to arrival. He has history of Lewy body dementia. He has had 4 episodes over the past 5 or 6 months of vertigo. He is accompanied by his was able to give detailed history. No preceding symptoms. No complaints of chest pain, palpitations, lightheadedness. No focal numbness or weakness. Presentation today is the same as previous episodes of vertigo. - Related Data Home Medications Medication Instructions Recorded Confirmed Rivastigmine [Rivastigmine 1 patch TRANSDERM DAILY 09/07/17 09/11/18 13.3MG/24Hr] Memantine [Namenda] 10 mg PO BID 04/20/18 09/11/18 traZODone HCL 50 mg PO HS 04/20/18 09/11/18 Multivitamins, Thera [Multivitamin 1 tab PO DAILY@1200 09/11/18 09/11/18 (formulary)] risperiDONE [RisperDAL] 0.5 mg PO HS@1500 09/11/18 09/11/18 Previous Rx's Medication Instructions Recorded Folic Acid 1 mg PO DAILY@1200 tab 05/25/18 Allergies Allergy/AdvReac Type Severity Reaction Status Date / Time No Known Allergies Allergy Verified 09/11/18 17:12 Review of Systems ROS Statement: Those systems with pertinent positive or pertinent negative responses have been documented in the HPI. ROS Other: All systems not noted in ROS Statement are negative. Past Medical History Past Medical History: Dementia Additional Past Medical History / Comment(s): dizziness, lewy Body Dementia History of Any Multi-Drug Resistant Organisms: None Reported Past Surgical History: Tonsillectomy Past Psychological History: No Psychological Hx Reported Smoking Status: Former smoker Past Alcohol Use History: None Reported Past Drug Use History: None Reported - Past Family History Mother Family Medical History: Dementia, Syncope Father Family Medical History: Congestive Heart Failure (CHF), Syncope General Exam Limitations: no limitations General appearance: alert, in no apparent distress Head exam: Present: atraumatic, normocephalic Eye exam: Present: normal appearance, PERRL, EOMI. Absent: nystagmus ENT exam: Present: mucous membranes dry Neck exam: Present: normal inspection. Absent: tenderness, meningismus Respiratory exam: Present: normal lung sounds bilaterally. Absent: respiratory distress, wheezes Cardiovascular Exam: Present: regular rate, normal rhythm GI/Abdominal exam: Present: soft. Absent: distended, tenderness, guarding Extremities exam: Present: normal inspection Neurological exam: Present: alert. Absent: oriented X3, motor sensory deficit Psychiatric exam: Present: normal affect, normal mood Skin exam: Present: warm, dry, intact. Absent: cyanosis, diaphoretic Course Vital Signs 09/11/18 16:37 Temperature 98 F Pulse Rate 61 Respiratory 22 Rate Blood Pressure 146/88 O2 Sat by Pulse 100 Oximetry EKG Findings - EKG Comments: EKG Findings:: EKG: Sinus bradycardia, LVH, no ST segment elevation or depression, rate of 53 OK interval 162, QRS duration 106, QTC 416 Medical Decision Making - Medical Decision Making 62-year-old male with history of vertigo, the body dementia presents for evaluation of dizziness and vomiting. Patient's states symptoms are identical to previous episodes of vertigo. Patient is well-appearing with non- focal neurological findings. I did establish IV, give normal saline, Zofran, and meclizine. Basic laboratory studies were obtained these are unremarkable. On reevaluation after symptomatically control, patient is feeling much better. Patient is are eager for discharge. I did offer observation for symptomatically control, they would prefer to be discharged home, she has meclizine at home and will return with worsening or changing symptoms. - Lab Data Result diagrams: 09/11/18 17:40 09/11/18 17:40 Lab Results 09/11/18 09/11/18 Range/Units 17:40 17:40 WBC 9.6 (3.8-10.6) k/uL RBC 4.56 (4.30-5.90) m/uL Hgb 14.9 (13.0-17.5) gm/dL Hct 42.0 (39.0-53.0) % MCV 92.0 (80.0-100.0) fL MCH 32.7 (25.0-35.0) pg MCHC 35.5 (31.0-37.0) g/dL RDW 12.9 (11.5-15.5) % Plt Count 271 (150-450) k/uL Neutrophils % 83 % Lymphocytes % 10 % Monocytes % 4 % Eosinophils % 1 % Basophils % 0 % Neutrophils # 8.0 H (1.3-7.7) k/uL Lymphocytes # 1.0 (1.0-4.8) k/uL Monocytes # 0.4 (0-1.0) k/uL Eosinophils # 0.1 (0-0.7) k/uL Basophils # 0.0 (0-0.2) k/uL Sodium 139 (137-145) mmol/L Potassium 4.2 (3.5-5.1) mmol/L Chloride 105 (98-107) mmol/L Carbon Dioxide 24 (22-30) mmol/L Anion Gap 10 mmol/L BUN 20 (9-20) mg/dL Creatinine 0.77 (0.66-1.25) mg/dL Est GFR (CKD-EPI)AfAm >90 (>60 ml/min/1.73 sqM) Est GFR (CKD-EPI)NonAf >90 (>60 ml/min/1.73 sqM) Glucose 102 H (74-99) mg/dL Calcium 10.1 (8.4-10.2) mg/dL Magnesium 2.2 (1.6-2.3) mg/dL Total Bilirubin 0.8 (0.2-1.3) mg/dL AST 21 (17-59) U/L ALT 23 (21-72) U/L Alkaline Phosphatase 71 (38-126) U/L Total Protein 6.7 (6.3-8.2) g/dL Albumin 4.1 (3.5-5.0) g/dL Disposition Clinical Impression: Dementia, Vertigo Disposition: HOME SELF-CARE Condition: Fair Instructions (If sedation given, give patient instructions): Vertigo (ED) Is patient prescribed a controlled substance at d/c from ED?: No Referrals: Des Ortiz MD [Primary Care Provider] - 1-2 days Time of Disposition: 18:54
[2018-09-11 18:10] LABS: Basophils % (A) 0 %; Eosinophils # (A) 0.1 k/uL (0-0.7); Eosinophils % (A) 1 %; HGB 14.9 gm/dL (13.0-17.5); Lymphocytes % (A) 10 %; MCH 32.7 pg (25.0-35.0); MCHC 35.5 g/dL (31.0-37.0); Mean Platelet Volume 7.7; Monocytes # (A) 0.4 k/uL (0-1.0); Monocytes % (A) 4 %; Neutrophils % (A) 83 %; Platelet Count 271 k/uL (150-450); RBC 4.56 m/uL (4.30-5.90); RDW 12.9 % (11.5-15.5); WBC 9.6 k/uL (3.8-10.6)
[2018-09-11 18:13] LABS: ALT 23 U/L (21-72); AST 21 U/L (17-59); Albumin 4.1 g/dL (3.5-5.0); Alkaline Phosphatase 71 U/L (38-126); Anion Gap 10 mmol/L; Blood Urea Nitrogen 20 mg/dL (9-20); Calcium 10.1 mg/dL (8.4-10.2); Carbon Dioxide 24 mmol/L (22-30); Chloride 105 mmol/L (98-107); Glucose 102 mg/dL (74-99); Magnesium 2.2 mg/dL (1.6-2.3); Potassium 4.2 mmol/L (3.5-5.1); Sodium 139 mmol/L (137-145); Total Bilirubin 0.8 mg/dL (0.2-1.3); Total Protein 6.7 g/dL (6.3-8.2)
[2018-09-11 19:32] VITALS: BP 170/90; PULSE 68; RESP 18
== END 2018-09-11 19:31 | disposition home or self-care (01) ==
LOC: EC 16:35
DX: G31.83 Neurocognitive disorder with Lewy bodies (principal); F02.80 Dementia in other diseases classified elsewhere, unspecified severity, without behavioral disturbance, psychotic disturbance, mood disturbance, and anxiety; Z79.899 Other long term (current) drug therapy; Z87.891 Personal history of nicotine dependence
CPT/HCPCS: 36415; 93005; 80053; 83735; 85025; 99285; 96374; 96361; J2405